=== PATIENT | female | born 1965 | race Caucasian/White ===

== ENCOUNTER 2020-08-17 15:37 | Outpatient (RCR) | payer BC, SELFPAY ==
[2017-05-20 07:20] VITALS: BMI 22.3
[2020-08-17] MEDS: COVID-19 VACC, MRNA(PFIZER)/PF 30 MCG/0.3 ML SYRINGE IM (13:17)
[2020-09-07] MEDS: COVID-19 VACC, MRNA(PFIZER)/PF 30 MCG/0.3 ML SYRINGE IM (12:46)
== END 2020-08-17 23:59 ==
LOC: IMMUN 15:37
PROVIDERS: PCP Family Medicine; Visit Provider Family Medicine
DX: Z23 Encounter for immunization (principal)
CPT/HCPCS: 0001A; 0002A; 91300

== ENCOUNTER → 2021-03-29 08:12 | Outpatient (CLI) | payer BC, SELFPAY ==
--- NOTE | 2021-03-29 15:40 | LES_PTH ---
PATIENT: NAREN YI LOC: [facility] U#:[id number] AGE/SX: 59/F ROOM: RE03/29/[address]: Dr. Andrew Morales MD : 1965 BED: DIS: SPEC #: [id number] RECD: 03/29/21 17:43 STATUS: HELEN RUBA #: [id number] CORNELL: 03/29/21 15:[address]: Andrew Morales DEPT: SURGICAL PATHOLOGY RECD BY: Aure Wilks Tissues: Skin of arm Procedures: Surgery Specimen Level IV HEADER OPERATION: Right forearm shave biopsy PRE-OP DIAGNOSIS: ?SCC TISSUE SUBMITTED: Right forearm MICROSCOPIC DIAGNOSIS Right forearm lesion, shave biopsy: Basal cell carcinoma, multifocal. Solar elastosis. See comment. ADELAIDE:abigail 04/02/2021 COMMENT The tumor is focally present at the deep margin of the specimen. Case has been reviewed in consultation with Dr. Queen who concurs with the above diagnosis. IDC:AM MICROSCOPIC DESCRIPTION Slides are reviewed. GROSS DESCRIPTION Received in fixative is one container labeled with the patient's name and designated right forearm. The specimen consists of a shave biopsy of randolph-white to light brown skin measuring 1 x 1 x 0.1 cm. The specimen is inked, serially sectioned and submitted entirely in one cassette. / SJ:rg 03/30/21 TC:0 CPT: 74417
== END ==
PROVIDERS: PCP Family Medicine; Referring Provider Family Medicine; Visit Provider Family Medicine
DX: C44.612 Basal cell carcinoma of skin of right upper limb, including shoulder (principal); L57.8 Other skin changes due to chronic exposure to nonionizing radiation; W89.9XXA Exposure to unspecified man-made visible and ultraviolet light, initial encounter; Y92.9 Unspecified place or not applicable; Y99.9 Unspecified external cause status
CPT/HCPCS: 88305

== ENCOUNTER → 2021-04-19 07:26 | Outpatient (CLI) | payer BC, SELFPAY ==
[2021-04-19 10:24] LABS: Vitamin D,25 Hydroxy 47.2 ng/mL
[2021-04-19 10:33] LABS: Anion Gap 5 (5-15); BUN 15 mg/dL (7-18); BUN/Creat Ratio 15.3 RATIO (10-20); Calcium,Total 9.7 mg/dL (8.5-10.1); Chloride 107 mmol/L (98-107); Cholesterol 286 mg/dL (200); Creatinine, Serum 0.98 mg/dL (0.55-1.02); EST Glomerular Filtration Rate 63 mL/min (>60); Est Glom Filt Rate - Afr Amer 76 mL/min (>60); Glucose 88 mg/dL (74-106); High Density Lipoprotein 68 mg/dL; Potassium 3.9 mmol/L (3.5-5.1); Sodium Level 140 mmol/L (136-145); Thyroid Stim Hormone (TSH) 1.89 uIU/mL (0.358-3.74); Triglycerides 108 mg/dL; Very Low Density Lipoprotein 22 mg/dL (5-40)
[2021-04-21 16:08] LABS: CHOLESTEROL TOTAL 279 mg/dL (100-199); HDL-C 66 mg/dL (>39); SMALL LDL-P 405 nmol/L (<=527); TRIGLYCERIDES 104 mg/dL (0-149)
[2021-04-21 16:45] LABS: INSULIN RESISTANCE SCORE <25 (<=45); LDL SIZE 21.8 nm (>20.5); LDL-C (NIH CALC) 195 mg/dL (0-99); LDL-P 2001 nmol/L (<1000)
== END ==
PROVIDERS: PCP Family Medicine; Referring Provider Family Medicine; Visit Provider Family Medicine
DX: Z13.21 Encounter for screening for nutritional disorder (principal); Z13.220 Encounter for screening for lipoid disorders; Z13.29 Encounter for screening for other suspected endocrine disorder; E78.5 Hyperlipidemia, unspecified; Z13.1 Encounter for screening for diabetes mellitus
CPT/HCPCS: 36415; 80048; 80061; 82306; 83704; 84443

== ENCOUNTER 2021-04-20 09:22 | Day surgery (SDC) | payer BC, SELFPAY ==
[2021-04-20] VITALS (7 sets, daily range): BP systolic 107–132; BP diastolic 61–76; PULSE 51–64; RESP 16; TEMP 36.1–36.2; O2SAT 100; BMI 22.6
[2021-04-20] MEDS: Lactated Ringers 1,000 ML 15 ML IV (09:55)
--- NOTE | 2021-04-20 10:35 | PCM.HP.BLA ---
History and Physical Date of Admission: 04/20/21 HISTORY OF PRESENT ILLNESS 55 year old woman presents with a lesion dorsal aspect mid right forearm that had been increasing size with irregular borders. The lesion was shave biopsied on 03/29/[address] Morales. Pathology showed a basal cell carcinoma, multifocal, and positive deep margins. She denies fever. She denies trauma. She denies bleeding. She has a family history of skin cancer. She presents today for further evaluation and treatment. PAST MEDICAL HISTORY Basal cell carcinoma of right forearm High cholesterol PAST SURGICAL HISTORY History of colonoscopy ALLERGIES No Known Allergies MEDICATIONS NK FAMILY HISTORY Other - Alcoholism, Arthritis, Diabetes, Family history of skin cancer, High cholesterol SOCIAL HISTORY Smoking Status: Never smoker alcohol intake: current substance use type: does not use REVIEW OF SYSTEMS General - Denies fever, fatigue, and weight loss. Eyes - Denies cataracts and glaucoma. ENT - Denies nasal congestion and sore throat. Endocrine - Denies excessive thirst and urination. Skin - Denies skin cancer. Has family history of skin cancer. Has a lesion right forearm that was shave biopsied on 03/29/21 and pathology showed a basal cell carcinoma, multifocal, and positive deep margins. Musculoskeletal - Denies joint pain, joint stiffness, weakness of muscles and joints, back pain, and arthritis. Neuro - Denies headaches. Cardiovascular - Denies chest pain, fatigue, and shortness of breath with exertion. Psych - Denies anxiety and depression. Respiratory - Denies chronic cough and shortness of breath. Gastrointestinal - Denies nausea, vomiting, diarrhea, and constipation. Hematologic - Denies abnormal bruising and bleeding. Genitourinary - Denies hematuria and urinary frequency. PHYSICAL EXAMINATION General - Alert and Oriented. HEENT - PERRL. EOMI. Throat is clear. No suspicious lesions noted. Neck - Supple and nontender. No cervical adenopathy. No suspicious lesions noted. Lungs - Clear to auscultation. Heart - Regular rate and rhythm. Abdomen - Soft and nondistended. Extremities - FROM. No axillary adenopathy. Radial pulses are palpable. On the dorsal aspect mid right forearm is a lesion that was shave biopsied on 03/29/21 and it showed a basal cell carcinoma, multifocal, with a positive deep margin. Measures 1.4 cm. Has irregular borders. Healing well. No evidence of infection. No other suspicious lesions noted. Neuro - CN II-XII grossly intact. Psych - Normal mood and affect. ASSESSMENT 1. 1.4 cm basal cell carcinoma, multifocal, dorsal aspect mid right forearm. 2. Family history of skin cancer. PLAN Pathology reviewed from 03/29/21. It showed a basal cell carcinoma, multifocal, with positive deep margin. Discussed basal cell carcinoma with the patient and its treatment options. Recommend operative intervention with excision of the basal cell carcinoma with a margin in all directions and send it to Pathology for analysis to rule out carcinoma at the margins. Reconstruction will be with a local skin flap. Surgery will be done under local anesthesia and IV sedation on an outpatient basis. Patient was informed of the risks and complications of the procedure including alternatives to surgery. These were discussed with the patient personally. Patient voices understanding and wishes to proceed. Some of the risks and complications were included in a form from the [employer]. We discussed the current risks associated with COVID-19. While it is understood that there is a community spread of COVID-19, the risk of scooby COVID-19 while at [facility] ([facility]) is very low; however, the risk cannot be completely mitigated because of the community spread of the disease. We discussed in detail the risk of exposure to and/or potential harm posed by the COVID-19 virus with having a surgery/procedure at this time versus the risk of delaying the surgery/procedure. It is not possible to know either the risk of delaying the surgery or procedure or chance of getting an infection with perfect accuracy, but a joint decision was made to proceed at this time with the scheduled surgery/procedure as indicated on the consent form. Patient was notified that we will need to comply with any screening or testing [facility] wishes to perform or that surgery may be delayed for any positive results. Procedure Criteria Procedure Type: Elective COVID Risk Discussion: The surgeon/proceduralist and patient have discussed in detail the risk of exposure to and/or potential harm posed by the COVID-19 virus with having a surgery/procedure at this time versus the risk of delaying the surgery/procedure. It is not possible to know either the risk of delaying the surgery or procedure or chance of getting an infection with perfect accuracy, but a joint decision was made between the patient and the surgeon/proceduralist to proceed at this time with the scheduled surgery/procedure as indicated on the consent form.
--- NOTE | 2021-04-20 11:00 | LES_PTH ---
PATIENT: NAREN YI [place] [facility] [place][id number] AGE/SX: 55/F ROOM: RE04/20/[address]: Dr. Haja Arteaga MD : 1965 BED: DIS: 04/20/2021 SPEC #: [id number] RECD: 04/20/21 13:32 STATUS: HELEN RUBA #: [id number] CORNELL: 04/20/21 11:[address]: Haja Arteaga DEPT: SURGICAL PATHOLOGY RECD BY: Aure Wilks ENTERED: 04/20/21 14:24 SP TYPE: Lesion OTHR DR: Dr. Andrew Morales MD Tissues: Skin of forearm, NOS Procedures: Surgery Specimen Level IV HEADER OPERATION: Excision basal cell carcinoma, dorsal forearm with skin flap PRE-OP DIAGNOSIS: Basal cell carcinoma right dorsal forearm TISSUE SUBMITTED: Basal cell carcinoma right dorsal forearm, suture at 12 o?clock MICROSCOPIC DIAGNOSIS Right dorsal forearm region, excisional biopsy: Negative for residual carcinoma. Focal granulation tissue reaction, fibrosis and acute inflammation consistent with previous biopsy site. Mild actinic keratosis and extensive solar elastosis. ADELAIDE:abigail 04/23/2021 COMMENT Please make reference to previous specimen ([id number]) right forearm lesion, shave biopsy with diagnosis of ?basal cell carcinoma, multifocal and solar elastosis.? This case has been reviewed in consultation with Dr. Queen who concurs with the above diagnosis. MICROSCOPIC DESCRIPTION Slides are reviewed. GROSS DESCRIPTION Received in fixative is one container labeled with the patient's name and designated basal cell carcinoma right dorsal forearm. The specimen consists of an excised fragment of oriented randolph skin measuring 3 x 2 x 0.5 cm. The specimen is inked as follows: 3 o?clock ? red and 9 o?clock ? green. The specimen is serially sectioned and totally submitted in two cassettes. / AM:abigail 04/20/21 TC:5 CPT: 42849
[2021-04-20] MEDS: Cefazolin 2 GM in 0.9% Normal Saline 100 ML IV (11:04)
[2021-04-20] MEDS: Lidocaine 1% /Epi 1:100 (20ml) 20 ML Vial (11:23)
[2021-04-20] MEDS: Mupirocin Ointment 22gm Tube 1 APPLIC (11:42)
--- NOTE | 2021-04-20 12:49 | OP.PCM_ITS ---
Problems Associated Problem List Diagnoses (1) Basal cell carcinoma of right forearm: (2) Family history of skin cancer: Report of Operation Date of Procedure: 04/20/21 Pre-Operative Diagnosis: 1. 1.4 cm basal cell carcinoma, multifocal, dorsal aspect mid right forearm. 2. Family history of skin cancer. Post-Operative Diagnosis: Same. Surgery/Procedure Performed:: Excision 1.4 cm basal cell carcinoma, multifocal, dorsal aspect mid right forearm with rhomboid transposition skin flap reconstruction (11.52 cm2). Description of Surgical Findings:: 55 year old woman presents with a lesion dorsal aspect mid right forearm that had been increasing size with irregular borders. The lesion was shave biopsied on 03/29/[address] Morales. Pathology showed a basal cell carcinoma, multifocal, and positive deep margins. She denies fever. She denies trauma. She denies bleeding. She has a family history of skin cancer. Patient was informed of the risks and complications of the procedure including alternatives to surgery. These were discussed with the patient personally. Patient voices understanding and wishes to proceed. Some of the risks and complications were included in a form from the [employer]. Surgeon: Haja Arteaga curb setter helper: None Type of Anesthesia: Local MAC (xylocaine with epinephrine and IV sedation.) Specimen's removed: Basal cell carcinoma, multifocal, dorsal aspect mid right forearm to Pathology. Drains: None. Estimated Blood Loss (mL): 10. Description of Procedure: Patient was taken to OR in supine position and was given IV sedation. The right upper extremity was prepped and draped in the usual fashion. SCD's were placed for DVT prophylaxis. Perioperative antibiotics were given intravenously. The lesion dorsal aspect mid right forearm was infiltrated with xylocaine and epinephrine. After waiting 5 minutes for the anesthetic to take effect, the lesion was excised in a rhomboid fashion with a 5 mm margin in all directions thus making this a 2.4 cm excision. A suture was marked at 12 oclock position for pathology orientation. The lesion was sent to Pathology for analysis to rule out carcinoma at the margins. A rhomboid flap was designed adjacent to the defect. Incisions were made and the rhomboid flap was elevated on a subcutaneous pedicle and easily transposed into the defect with minimal tension and minimal distortion. Hemostasis was obtained with electrocautery. Once the flap was transposed into the defect, the wounds were closed in a layered fashion with 4-0 Monocryl interrupted sutures for the deep dermis and subcutaneous tissue. The skin was approximated with 4-0 Prolene simple interrupted sutures. Antibiotic ointment was applied to the suture lines followed by gauze dressing and a compression sam wrap. The size of the defect and the size of the flap needed to close the defect was 11.52 cm2. Patient tolerated the procedure well and was sent to PACU in satisfactory condition. Patient will be sent home on antibiotics and pain medication. She will keep her right arm elevated during the initial postoperative period. Patient will followup in a week for a wound check and for discussion of the pathology report. The sutures will be removed in two weeks. Grafts/Implants Used: None. Complications None. Admit VTE Documentation VTE Present on Admission: No VTE Mechan Device Prophylaxis: SCD's VTE Pharm Prophylaxis ordered?: No Addendum Addendum: Surgery Charges CPT - 83824 ICD-10 - C44.612, Z80.8
--- NOTE | 2021-04-20 12:53 | PCM.DC ---
Discharge Instructions Diet Discharge Diet: No restrictions Activity Discharge Activity: May Not Drive (while taking narcotics medication.), May Shower (tomorrow and place plastic bag over sam wrap when showering. On the second day (Friday) patient may get incision wet in the shower.) and - (elevate right arm when sitting. No heavy lifting right arm.) May resume sexual activity in: No Restrictions Weight Bearing Status: Weight bearing as tolerated Lifting Restrictions: 20 lbs. Dressing / Incision Call your doctor if your incision/area has: Continuous Slow Oozing, Sudden Increased Bleeding, Increased Pain/ Swelling, Increased Redness, Foul Smelling Discharge and Swelling at the incision site Call your doctor if you observe: Fever of 101 or Higher, Coldness, Increased Pain, Shortness of breath, Chest pain, Calf discomfort and Uncontrolled pain Suture Line Care: - (after operative dressing removed in two days, apply antibiotic ointment to suture line daily followed by compression sam wrap.) Change Dressing in: 2 days (may remove the operative dressing to shower and then apply antibiotic ointment to suture line followed by gauze and compression sam wrap.) Cleanse incision/area with: - (may get incision wet in the shower in two days.) Follow Up Care Please Follow Up With: Haja Arteaga MD When: friday04/25/21 at 10am. Test Results: Test results from this visit will be discussed in further detail at your follow-up appointment, if applicable. Discharge Plan Admission Primary Reason for Your Visit: excision basal cell carcinoma right forearm. Attending Provider: Haja Arteaga Primary Care Provider: Willem Morales Discharge Orders/Prescriptions Prescriptions: New cefadroxil 500 mg capsule 500 mg PO BID Qty: 10 RF: 0 oxycodone-acetaminophen [Percocet] 5-325 mg tablet 1 tab PO Q6H PRN (Reason: pain (scale score 7-10)) 5 Days Qty: 20 RF: 0 Lactobacillus acidophilus 100 mg (1 billion cell) capsule 100 mg PO DAILY Qty: 10 RF: 0 Continued biotin 5 mg Capsule 5 mg PO DAILY RF: 0 multivitamin Capsule 1 cap PO DAILY RF: 0 Referrals / Follow Up: Willem Morales MD [Primary Care Provider] - Disposition Disposition (needs filled in before D/C Order can be placed): Home, Self Care
== END 2021-04-20 13:54 | disposition home or self-care (01) ==
LOC: SDC 09:25 → AC 09:25
PROVIDERS: PCP Family Medicine; Referring Provider Surgery; Visit Provider Surgery
PROC: (CPT 14021; principal; 2021-04-20 10:50)
DX: C44.612 Basal cell carcinoma of skin of right upper limb, including shoulder (principal); Z80.8 Family history of malignant neoplasm of other organs or systems; E78.00 Pure hypercholesterolemia, unspecified; Z63.72 Alcoholism and drug addiction in family; Z82.61 Family history of arthritis; Z83.3 Family history of diabetes mellitus; Z85.828 Personal history of other malignant neoplasm of skin; Z83.49 Family history of other endocrine, nutritional and metabolic diseases; L57.0 Actinic keratosis
CPT/HCPCS: 14021; 88305; J7120

== ENCOUNTER 2021-06-15 10:22 | Outpatient (CLI) | payer BC, SELFPAY ==
--- NOTE | 2021-06-15 10:45 | BRBX_PTH ---
PATIENT: NAREN YI LOC: [facility] U#:[id number] AGE/SX: 55/F ROOM: RE06/15/[address]: Dr. Alfred Dobson MD : 1965 BED: DIS: 06/15/2021 SPEC #: [id number] RECD: 06/15/21 11:18 STATUS: HELEN RUBA #: [id number] CORNELL: 06/15/21 10:[address]: Alfred Dobson DEPT: SURGICAL PATHOLOGY RECD BY: Aure Wilks ENTERED: 06/15/21 12:35 SP TYPE: BREAST BX OTHR DR: Dr. Andrew Morales MD Tissues: Left breast, NOS Procedures: Surgery Specimen Level IV HEADER OPERATION: Left stereotactic breast biopsy PRE-OP DIAGNOSIS: Left breast upper outer quadrant microcalcifications TISSUE SUBMITTED: Left breast core tissue ISCHEMIC TIME: 1 minute FIXATION TIME: 32.5 hours MICROSCOPIC DIAGNOSIS Left breast upper outer quadrant microcalcifications, stereotactic core biopsy: Hyalinized fibroadenoma with focal calcifications. Focal fibrocystic changes and intraductal hyperplasia without atypia. Negative for malignancy. See comment. ADELAIDE:abigail 06/18/2021 COMMENT Correlation with clinical, radiologic findings and appropriate follow up are necessary. MICROSCOPIC DESCRIPTION Slides are reviewed. GROSS DESCRIPTION Received in fixative is one container labeled with the patient's name and designated left breast. The specimen consists of multiple elongated fragments of randolph-yellow fibroadipose tissue that in aggregate measure 5 x 3 x 0.6 cm. The entire specimen is submitted in four cassettes. / ADELAIDE:abigail 06/15/2021 TC:1 CPT: 14769
--- NOTE | 2021-06-15 11:41 | HP.PCM_ITS ---
History and Physical Date of Admission: 06/15/21 HISTORY AND PHYSICAL - BREAST COMPLAINT ? Erica Hidalgo 1965 ? ? REFERRING PHYSICIAN: Yareli Smyth MD ? CHIEF COMPLAINT: Mammographic microcalcification found on diagnostic imaging of breast (primary encounter diagnosis) ? HPI: The patient is a 55 year old female with a complaint of an abnormal mammogram. The patient had a mammogram without ultrasound on 06/05/21 which demonstrated birads 4 left calcs: ? ? The patient denies a history of breast masses. She does perform a self breast exam routinely. She notes no skin changes. She denies nipple discharge. She notes no axillary masses. She notes no family history of breast problems. She notes no significant breast trauma or breast difficulties in the past. ? The patient is being seen by me today at the request of Dr. Smyth for my opinion and advice regarding Mammographic microcalcification found on diagnostic imaging of breast (primary encounter diagnosis). ? PAST MEDICAL HISTORY PAST MEDICAL HISTORY Diagnosis Date ? Other and unspecified hyperlipidemia ? ? ? PAST SURGICAL HISTORY PAST SURGICAL HISTORY Procedure Laterality Date ? PAST SURGICAL HISTORY OF ? ? ? uterus ablasion ? PAST SURGICAL HISTORY OF ? ? ? right forearm carcinoma removal ? TUBAL LIGATION, ? 06/02/1992 ? ? ? CURRENT MEDICATIONS Current Outpatient Medications Medication Sig Dispense Refill ? BIOTIN ORAL Take by mouth once daily. 5000 IU ? MULTIVITAMIN ORAL Take by mouth once daily. ? Biotin-Silicon Zwqe-K-Npsqwtmn 5,000 mcg-100 mg- 50 mg tab Take 1 capsule by mouth once daily. (Patient not taking: Reported on 06/08/2021 ) ? ? ? No current facility-administered medications for this visit. ? ? ALLERGIES: Patient has no known allergies. ? PERSONAL HISTORY: SOCIAL HISTORY Social History ? Tobacco Use ? Smoking status: Never Smoker ? Smokeless tobacco: Never Used Vaping Use ? Vaping Use: Never used Substance Use Topics ? Alcohol use: Yes ? ? Comment: occasionally ? Drug use: No ? FAMILY HISTORY: FAMILY HISTORY FAMILY HISTORY Problem Relation Age of Onset ? Diabetes Father ? ? insulin ? Hypertension Father ? ? ? REVIEW OF SYMPTOMS: The review of systems data was entered by the nurse and reviewed by me ? Nursing Notes: Evon Shea LPN 06/08/2021 8:27 AM Signed REVIEW OF SYSTEMS: General: The patient denies fatigue, denies weight loss, denies weight gain, denies feeling hot, and denies feelings of cold. Eyes: The patient denies glaucoma, notes eye injury/surgery, does not wear glasses or contacts. Ear/Nose/Throat: The patient denies allergies, denies hayfever, denies ear infections, and denies bloody noses. Cardiovascular: The patient denies chest pain, denies heart disease, denies high blood pressure,denies cardiac stent, denies prior heart attack, denies irregular heart beat, notes high cholesterol, denies poor circulation, denies heart failure, other cardiac issues, denies claudication, denies cold feet, denies peripheral arterial stent. Respiratory: The patient denies tuberculosis, denies pneumonia, denies frequent cough, denies pulmonary embolism, denies shortness of breath, and denies coughing up blood. Gastrointestinal: The patient denies difficulty swallowing, denies acid reflux, denies ulcers, denies vomiting, denies jaundice/hepatitis, denies gallbladder problems, denies black or tarry stools, denies hemorrhoids, denies bleeding from rectum, denies diverticulitis, denies constipation, denies diarrhea, denies loss of stool control, and denies hernias. Kidney/Bladder: The patient denies kidney stones, denies urine infections, and denies bloody urine. Skin: The patient notes a history of skin cancer, denies bleeding/changing moles, and denies a history of skin rash. Neurologic: The patient denies a history of epilepsy/convulsions, denies headaches, denies head/spinal injuries, and denies stroke/TIA. Psychiatric: The patient denies psychiatric medications, denies depression, and denies voices, denies substance abuse. Endocrine: The patient denies thyroid disorders, denies diabetes, and denies hormonal problems. Hematologic: The patient denies a history of bruising, denies bleeding, and denies anemia, denies blood clots. Infections: The patient denies a history of measles and mumps, denies rheumatic fever, and denies sexually transmitted diseases. Musculoskeletal: The patient denies back pain/injury, denies back problems, denies sciatica, denies knee/foot trouble, denies arthritis, or denies gout. ? ? When was patient's last Mammogram screening? 04/2021 ? Last Colonoscopy: 2017 ? Evon Shea LPN ? PHYSICAL EXAMINATION: ? General: The patient is 55 year old female, well nourished, well hydrated in no acute distress. The patient is oriented to time, place, and person. ? VITALS: Blood pressure 118/74, pulse 80, temperature 36.6 ?C (97.8 ?F), height 157.5 cm (5' 2), weight 62.3 kg (137 lb 6.4 oz), last menstrual period 09/08/2014, SpO2 100 %. Body mass index is 25.13 kg/m?. ? HEENT: Normal cephalic, ataumatic, pupils are equally round, sclera are anicteric, mucous membranes are moist, oropharynx is clear. Neck has no masses, asymmetry or lymphadenopathy. Thyroid is unremarkable. ? Respiratory: Clear to auscultation and percussion. Normal respiratory excursion and pattern. ? Cardiac: Examination is regular rate and rhythm. ? Abdominal exam: Soft, nontender, with no palpable masses. No hepatosplenomegaly. No palpable hernias. ? Rectal exam: exam deferred Extremities: no clubbing, cyanosis or edema. No adenopathy. ? Breast: Visual inspection reveals no retractions, nipple inversion, or skin changes. Palpation of the right breast reveals no dominant or suspicious masses, but multiple benign-feeling nodules. Palpation of the left breast reveals no dominant or suspicious masses, but multiple benign-feeling nodules. Axillary exam demonstrates no suspicious masses in either the left or right axilla. There is no nipple discharge expressed from either the left or right breast. ? LABORATORY VALUES: As Noted ? RADIOLOGIC STUDIES: As Noted ? Assessment IMPRESSION: Mammographic microcalcification found on diagnostic imaging of breast (primary encounter diagnosis) ? PLAN: I plan to perform a stereotactic biopsy of the left breast. The planned surgical procedure was discussed extensively with the patient. The risks, benefits, anticipated outcomes and possible complications were mentioned. My staff has also explained the procedure in understandable terms and the patient was given the option to take printed material concerning the planned procedure. The patient had the opportunity to ask questions concerning the planned procedure. The patient freely consents to the planned procedure. ? ? Diagnoses: (R92.0) Mammographic microcalcification found on diagnostic imaging of breast (primary encounter diagnosis) ? My findings have been communicated to Dr. Smyth via shared medical record. This note will be forwarded to Dr. Berry primary care provider on file.. ? Return to Clinic: The patient is instructed to follow-up with me 1 week post operatively. ? COVID (Procedure Consent) Procedure Criteria ? Procedure Criteria: Yes Elective The surgeon/proceduralist and patient have discussed in detail the risk of exposure to and/or potential harm posed by the COVID-19 virus with having a surgery/procedure at this time versus the risk of? delaying the surgery/procedure. It is not possible to know either the risk of delaying the surgery or procedure or chance of getting an infection with perfect accuracy, but a joint decision was made between the patient and the surgeon/proc eduralist ?to proceed at this time with the scheduled surgery/procedure as indicated on the consent form. ? ? Alfred Dobson III, MD . I have re-examined the patient. There are no clinical changes since date of exam.
--- NOTE | 2021-06-15 11:41 | PCM.OPRPT ---
Problems Associated Problem List Diagnoses (1) Microcalcification of left breast on mammogram: Report of Operation Date of Procedure: 06/15/21 Pre-Operative Diagnosis: Microcalcifications of left breast Post-Operative Diagnosis: Same Surgery/Procedure Performed:: Left stereotactic breast biopsy Surgeon: Alfred Dobson nursing assistants teacher: None Type of Anesthesia: Local Description of Procedure: Patient was brought into the mammography unit placed in the supine position. Lateral to medial views obtained of the left breast. Microcalcifications were identified. ?15 degree views were obtained. I targeted on the microcalcifications. I prepped the breast. I injected local. I made a skin ekaterina. Placed the needle in the prefire position. Microcalcifications were adequately targeted. Fired the needle and took 360 degree circumferential biopsies. X-ray my specimen. Microcalcifications were present. That the needle of 7 mm. Placed a small Gelfoam titanium clip in the biopsy cavity. Steri-Strips were applied sterile dressings were applied standard mammograms were obtained and the patient tolerated the procedure well. Admit VTE Documentation VTE Present on Admission: No VTE Mechan Device Prophylaxis: None VTE Pharm Prophylaxis ordered?: No Reason prophylaxis not ordered:: Treatment Not Indicated
== END 2021-06-15 23:59 | disposition short-term general hospital (02) ==
LOC: BIRAD 10:23
PROVIDERS: PCP Family Medicine; Referring Provider Surgery; Visit Provider Surgery
DX: D24.2 Benign neoplasm of left breast (principal); N60.12 Diffuse cystic mastopathy of left breast
CPT/HCPCS: 19081; 88305; J7050; A4648

== ENCOUNTER → 2023-05-08 | Outpatient (CLI) | payer BC, SELFPAY ==
[2023-05-08 10:21] LABS: Absolute Lymphocyte Count 1.21 X10^3/uL (0.83-4.51); Basophil# 0.02 X10^3/uL; Basophil% 0.3 % (0-1); Eosinophil# 0.02 X10^3/uL; Eosinophils% 0.3 % (0-5); Hemoglobin 13.8 g/dL (12.0-15.0); Lymphocyte # 1.21 X10^3/ul (0.83-4.51); Lymphocyte % 15.7 % (19-41); Mean Corp Hgb Conc 31.4 g/dL (32-36); Mean Corpuscular Hgb 27.8 pg (27.0-32.0); Mean Corpuscular Volume 88.5 fL (81-99); Mean Platelet Vol. 11.5 fl (6.2-12.0); Monocyte# 0.41 X10^3/uL; Monocyte% 5.3 % (0-10); NRBC Flagged by Analyzer 0 % (0-5); Neutrophil # 6.01 X10^3/uL (2.7-7.7); Neutrophil % 78.1 % (47-70); Platelet Count 222 K/mm3 (150-450); RBC Distribution Width CV 13.4 % (11.6-14.6); RBC Distribution Width SD 43.3 fl (35.1-43.9); Red Blood Count 4.97 M/mm3 (4.2-5.4); White Blood Count 7.7 K/mm3 (4.4-11.0)
[2023-05-08 10:50] LABS: Anion Gap 5 (5-15); BUN 15 mg/dL (7-18); BUN/Creat Ratio 14.2 RATIO (10-20); Chloride 110 mmol/L (98-107); Cholesterol 263 mg/dL (200); Creatinine, Serum 1.06 mg/dL (0.55-1.02); EST Glomerular Filtration Rate 57 mL/min (>60); Est Glom Filt Rate - Afr Amer 69 mL/min (>60); Glucose 91 mg/dL (74-106); High Density Lipoprotein 68 mg/dL; Potassium 3.7 mmol/L (3.5-5.1); Sodium Level 141 mmol/L (136-145); Thyroid Stim Hormone (TSH) 1.45 uIU/mL (0.358-3.74); Triglycerides 87 mg/dL; Very Low Density Lipoprotein 17 mg/dL (5-40)
== END | disposition home or self-care (01) ==
LOC: MFPLAB 08:37
PROVIDERS: PCP Family Medicine; Visit Provider Family Medicine
DX: E78.00 Pure hypercholesterolemia, unspecified (principal); T14.8XXA Other injury of unspecified body region, initial encounter
CPT/HCPCS: 36415; 80048; 80061; 84443; 85025

== ENCOUNTER → 2024-05-31 | Outpatient (CLI) | payer BC, SELFPAY ==
[2024-05-31 10:32] LABS: Anion Gap 1 (5-15); BUN 16 mg/dL (7-18); BUN/Creat Ratio 16.9 RATIO (10-20); Calcium,Total 9.5 mg/dL (8.5-10.1); Chloride 107 mmol/L (98-107); Cholesterol 328 mg/dL (200); Creatinine, Serum 0.95 mg/dL (0.55-1.02); EST Glomerular Filtration Rate 64 mL/min (>60); Est Glom Filt Rate - Afr Amer 78 mL/min (>60); Glucose 97 mg/dL (74-106); High Density Lipoprotein 81 mg/dL; Sodium Level 139 mmol/L (136-145); Triglycerides 85 mg/dL; Very Low Density Lipoprotein 17 mg/dL (5-40)
== END | disposition home or self-care (01) ==
LOC: MFPLAB 08:16
PROVIDERS: PCP Family Medicine; Referring Provider Family Medicine; Visit Provider Family Medicine
DX: N28.9 Disorder of kidney and ureter, unspecified (principal); E78.00 Pure hypercholesterolemia, unspecified
CPT/HCPCS: 36415; 80048; 80061

== ENCOUNTER → 2025-05-20 | Outpatient (CLI) | payer BC, SELFPAY ==
--- OUTSIDE RECORDS SUMMARY | 2025-05-20 08:26 | XMS RPT_ITS | CCD ---
Author Organization [facility] Care Team Providers Care Education Program Specialist Name Role Phone Unavailable Primary Care Provider UnavailKei Ayers Referring Unavailable Kei Morales Attending Unavailable Kei Morales Primary Care Unavailable Unavailable Primary Care Provider UnavailDOUG Nicholson Referring Unavailable DOUG ASKEW Attending Unavailable DOUG ASKEW Referring Unavailable Kei Morales MD Primary Care Provide r KEI MORALES Referring Unavail able KEI MORALES Primary Care Unavail able Allergies Allergy Classification Reported Allergen(s) Allergy Type Date of Onset Reaction(s) Facility (1 source) ALLERGIES NOT ON FILE; Translations: [ALLERGIES NOT ON FILE] Propensity to adverse reactions (disorder) [facility] Medications Current Medications Medication Drug Class(es) Dates Sig (Normalized) Sig (Original) atorvastatin 20 mg oral tablet (2 sources) HMG-CoA Reductase Inhibitor Start: 06-08-2024 take 1 tablet by mouth once daily LIPITOR 20 mg tablet Take 20 mg by mouth once daily. 06/08/2024 Active biotin 5 mg oral capsule (10 sources) Start: 04-18-2021 take 5 mg by mouth once daily Biotin Active 5 MG PO DAILY April 18, 2021 12:00am take 5000 [IU] by mouth once apolinar ly BIOTIN ORAL Take by mouth once daily. 5000 IU Active take 5000 [IU] by mouth once apolinar ly BIOTIN ORAL Take by mouth once daily. 5000 IU 0 Active Comment on above: Take by mouth once d aily. 5000 IU Biotin-Silicon Hjjm-K-Wgitqoub 5,000 mcg-100 mg- 50 mg tab (9 sources) take 1 capsule by mouth once daily Biotin-Silicon Zjqi-X-Eqwadjdx 5,000 mcg-100 mg- 50 mg tab Take 1 capsule by mouth once daily. Active take 1 capsule by mouth once apolinar ly Biotin-Silicon Numv-H-Bzfqqvcq 5,000 mcg-100 mg- 50 mg tab Take 1 capsule by mouth once daily. 0 Active Comment on above: Take 1 capsule by mo uth once daily. MULTIVITAMIN ORAL (9 sources) MULTIVITAMIN ORA L Take by mouth once daily. Active MULTIVITAMIN ORA L Take by mouth once daily. 0 Active Comment on above: Take by mouth once d aily. Multivitamin preparation (1 source) Start: 04-18-2021 take 1 capsule by mouth once daily Multivitamin Active 1 CAP PO DAILY April 18, 2021 12:00am Completed/Discontinued Medications Medication Drug Class(es) Dates Sig (Normalized) Sig (Original) acetaminophen 325 mg / oxyCODONE hydrochloride 5 mg oral tablet (1 source) Opioid Agonist Start: 04-20-2021 End: 05-17-2021 take 1 tablet by mouth every six hours Oxycodone-Acetamin ophen (Percocet) 5-325 mg tablet Discontinued 1 TABLET PO EVERY 6 HOURS 20 5 April 20, 2021 May 17, 2021 9:38am 20 tabs (twenty) cefadroxil 500 mg oral capsule (1 source) Cephalosporin Antibacterial Start: 04-20-2021 End: 05-17-2021 take 500 mg by mouth twice daily Cefadroxil Discontinued 500 MG PO TWICE A DAY April 20, 2021 12:00am May 17, 2021 9:38am lactobacillus acidophilus [id number] unt oral capsule (1 source) Start: 04-20-2021 End: 05-17-2021 take 100 mg by mouth once daily Lactobacillus Acidophilus Discontinued 100 MG PO DAILY April 20, 2021 12:00am May 17, 2021 9:38am Problems Active Problems Problem Classification Problem Date Documented Date Episodic/Chronic Complications of surgical procedures or medical care (1 source) Delayed healing of surgical wound; Translations: [Other complications of procedures, not elsewhere classified, initial encounter] 05-17-2021 Episodic Disorders of lipid metabolism (5 sources) Hypercholesterolemia; Translations: [Pure hypercholesterolemia, unspecified] Onset: 11-01-2024 04-16-2021 Chronic Other diseases of kidney and ureters (1 source) Disorder of kidney and ureter, unspecified; Translations: [Disorder of kidney and ureter, unspecified] Onset: 06-24-2024 Episodic Other nervous system disorders (1 source) Acute postoperative pain; Translations: [Other acute postprocedural pain] 04-20-2021 Episodic Other non-epithelial cancer of skin (1 source) Basal cell carcinoma of upper extremity; Translations: [Basal cell carcinoma of skin of right upper limb, including shoulder] 04-16-2021 Episodic Other screening for suspected conditions (not mental disorders or infectious disease) (11 sources) Mammography abnormal; Translations: [Other abnormal and inconclusive findings on diagnostic imaging of breast] Onset: 09-28-2024 Episodic Residual codes; unclassified (1 source) Family history of malignant neoplasm of skin; Translations: [Family history of malignant neoplasm of other organs or systems] 04-16-2021 Episodic Unclassified (2 sources) Patient encounter status 07-29-2024 Past or Other Problems Problem Classification Problem Date Documented Date Episodic/Chronic Nonmalignant breast conditions (4 sources) Mammographic microcalcification of left breast; Translations: [Mammographic microcalcification found on diagnostic imaging of breast] Onset: 2 Resolved: 5 06-15-2021 Episodic Other female genital disorders (3 sources) Abnormal uterine bleeding; Translations: [Abnormal uterine and vaginal bleeding, unspecified] Onset: 5 Resolved: 5 11-10-2014 Chronic Results Test Name Value Interpretation Reference Range Facility CT CARDIAC SCORING WO IV CON TRASTon 11-01-2024 CT CARDIAC SCORING WO IV CONTRAST Interpreted By: Sparkle Couch, STUDY: CT CARDIAC SCORING WO IV CONTRAST; 11/01/2024 8:48 am INDICATION: Signs/Symptoms:SCREE EVANGELISTA. ,E78.5 Hyperlipidemia, unspecified COMPARISON: 05/03/2021 ACCESSION NUMBER(S): [id number] ORDERING CLINICIAN: KEI MORALES TECHNIQUE: Using prospective ECG gating, CT scan of the coronary arteries was performed without intravenous contrast. Coronary calcium scoring was performed according to the method of Agatston. FINDINGS: The score and distribution of calcium in the coronary arteries is as follows: LM 16.56 LAD 7.64 LCx 0 RCA 0 Total 24.2 The visualized mid/lower ascending thoracic aorta measures 3.3 cm in diameter. The heart is normal in size. No pericardial effusion is present. No gross evidence of mediastinal or hilar lymphadenopathy or masses is identified. The visualized segments of the lungs are normally expanded. 7 x 4 mm ground-glass nodule lateral aspect of the lingula (image 32 of 53) is not definitely identified on the prior exam. The visualized subdiaphragmatic structures appear intact. IMPRESSION: 1. Coronary artery calcium score of 24.2, increased from 1 on the prior study*. 2. 7 x 4 mm ground-glass nodule lingula is not definitely identified on the previous exam. Consider follow up non contrast chest CT at 6-12 months to confirm persistence, then consider CT chest every 2 years until 5 years.(Hossein Wilson et al., Guidelines for management of incidental pulmonary nodules detected on CT images: From the Fleischner Society 2017, Radiology. 2017 Finn;284 (1):228-243.) FLEISCHNER.ACR.IF.8 *Coronary artery calcium scoring may be helpful in predicting the risk for future coronary heart disease events. According to the [place] [employer] Clinical Expert Consensus Task Force, such testing provides important prognostic information in patients with more than one coronary heart disease risk factor. The coronary artery calcium score correlates with the annual risk of a non-fatal myocardial infarction or coronary heart disease . Coronary artery score Annual Risk 0-99 0.4% 100-399 1.3% >400 2.4% These three breakpoints correspond to lower, intermediate and high risk states for future coronary events. Such information should be used, along with appropriate clinical judgment, to make decisions regarding the intensity of risk factor management strategies to treat blood lipids and to modify other non-lipid coronary risk factors. Reference: Stafford P et al. Circulation. 2007; 115:402-426 MACRO: Critical Finding: See findings. Notification was initiated on 11/01/2024 at 3:05 pm by Sparkle Couch. (-YCF-) Instructions: Signed by: Sparkle Couch 11/01/2024 3:05 PM Dictation workstation: [id number] [facility] CT for calcium scoring WO co ntrast and CTA W contrast IV Heart and coronary arterieson 11-01-2024 1. Coronary artery calcium score of 24.2, increased from 1 on the prior study*. 2. 7 x 4 mm ground-glass nodule lingula is not definitely identified on the previous exam. Consider follow up non contrast chest CT at 6-12 months to confirm persistence, then consider CT chest every 2 years until 5 years.(Hossein Wilson et al., Guidelines for management of incidental pulmonary nodules detected on CT images: From the Fleischner Society 2017, Radiology. 2017 Finn;284 (1):228-243.) ANNETTE.ACR.IF.8 *Coronary artery calcium scoring may be helpful in predicting the risk for future coronary heart disease events. According to the [place] [employer] Clinical Expert Consensus Task Force, such testing provides important prognostic information in patients with more than one coronary heart disease risk factor. The coronary artery calcium score correlates with the annual risk of a non-fatal myocardial infarction or coronary heart disease . Coronary artery score Annual Risk 0-99 0.4% 100-399 1.3% >400 2.4% These three breakpoints correspond to lower, intermediate and high risk states for future coronary events. Such information should be used, along with appropriate clinical judgment, to make decisions regarding the intensity of risk factor management strategies to treat blood lipids and to modify other non-lipid coronary risk factors. Reference: Stafford P et al. Circulation. 2007; 115:402-426 MACRO: Critical Finding: See findings. Notification was initiated on 11/01/2024 at 3:05 pm by Sparkle Couch. (-YCF-) Instructions: Signed by: Sparkle Couch 11/01/2024 3:05 PM Dictation workstation: [id number] [facility] Interpreted By: Sparkle Couch, STUDY: CT CARDIAC SCORING WO IV CONTRAST; 11/01/2024 8:48 am INDICATION: Signs/Symptoms:SCREE EVANGELISTA. ,E78.5 Hyperlipidemia, unspecified COMPARISON: 05/03/2021 ACCESSION NUMBER(S): [id number] ORDERING CLINICIAN: KEI MORALES TECHNIQUE: Using prospective ECG gating, CT scan of the coronary arteries was performed without intravenous contrast. Coronary calcium scoring was performed according to the method of Agatston. FINDINGS: The score and distribution of calcium in the coronary arteries is as follows: LM 16.56 LAD 7.64 LCx 0 RCA 0 Total 24.2 The visualized mid/lower ascending thoracic aorta measures 3.3 cm in diameter. The heart is normal in size. No pericardial effusion is present. No gross evidence of mediastinal or hilar lymphadenopathy or masses is identified. The visualized segments of the lungs are normally expanded. 7 x 4 mm ground-glass nodule lateral aspect of the lingula (image 32 of 53) is not definitely identified on the prior exam. The visualized subdiaphragmatic structures appear intact. [facility] Sparkle Couch MD - 11/01/2024 Interpreted By: Sparkle Couch, STUDY: CT CARDIAC SCORING WO IV CONTRAST; 11/01/2024 8:48 am INDICATION: Signs/Symptoms:SCREE EVANGELISTA. ,E78.5 Hyperlipidemia, unspecified COMPARISON: 05/03/2021 ACCESSION NUMBER(S): [id number] ORDERING CLINICIAN: KEI MORALES TECHNIQUE: Using prospective ECG gating, CT scan of the coronary arteries was performed without intravenous contrast. Coronary calcium scoring was performed according to the method of Agatston. FINDINGS: The score and distribution of calcium in the coronary arteries is as follows: LM 16.56 LAD 7.64 LCx 0 RCA 0 Total 24.2 The visualized mid/lower ascending thoracic aorta measures 3.3 cm in diameter. The heart is normal in size. No pericardial effusion is present. No gross evidence of mediastinal or hilar lymphadenopathy or masses is identified. The visualized segments of the lungs are normally expanded. 7 x 4 mm ground-glass nodule lateral aspect of the lingula (image 32 of 53) is not definitely identified on the prior exam. The visualized subdiaphragmatic structures appear intact. IMPRESSION: 1. Coronary artery calcium score of 24.2, increased from 1 on the prior study*. 2. 7 x 4 mm ground-glass nodule lingula is not definitely identified on the previous exam. Consider follow up non contrast chest CT at 6-12 months to confirm persistence, then consider CT chest every 2 years until 5 years.(Hossein Petithojoe et al., Guidelines for management of incidental pulmonary nodules detected on CT images: From the Fleischner Society 2017, Radiology. 2017 Finn;284 (1):228-243.) FLEISCHNER.ACR.IF.8 *Coronary artery calcium scoring may be helpful in predicting the risk for future coronary heart disease events. According to the [place] [employer] Clinical Expert Consensus Task Force, such testing provides important prognostic information in patients with more than one coronary heart disease risk factor. The coronary artery calcium score correlates with the annual risk of a non-fatal myocardial infarction or coronary heart disease . Coronary artery score Annual Risk 0-99 0.4% 100-399 1.3% >400 2.4% These three breakpoints correspond to lower, intermediate and high risk states for future coronary events. Such information should be used, along with appropriate clinical judgment, to make decisions regarding the intensity of risk factor management strategies to treat blood lipids and to modify other non-lipid coronary risk factors. Reference: Stafford P et al. Circulation. 2007; 115:402-426 MACRO: Critical Finding: See findings. Notification was initiated on 11/01/2024 at 3:05 pm by Sparkle Couch. (-YCF-) Instructions: Signed by: Sparkle Couch 11/01/2024 3:05 PM Dictation workstation: [id number] [facility] Work Phone: Radiology Study observation (narrative) [facility] Work Phone: CT for calcium scoring WO co ntrast and CTA W contrast IV Heart and coronary arteriesOrdered By: Sparkle Couch on 11-01-2024 [facility] Work Phone: CNOVon 09-28-2024 CNOV Office Visit (OBGYWM) NAREN HIDALGO ([id number]) 1965 F Date Time Provider Department 09/28/24 1:20 PM DOUG ASKEW OBJOSÉ MIGUEL During your visit today, we recorded the following information about you: Blood pressure Weight Height 130/74 54.9 kg 1.61 m Doug Askew MD 09/28/2024 1:29 PM Signed Customer Support Coordinator offered: Patient declines. maria esther Maldonado is a 58 year old who presents for an annual gynecologic exam without complaints. Postmenopausal: Yes HRT use: No. Still get period: No LMP: 09/08/2014 Menopause symptoms: None Time with current partner: 41 years Number of lifetime partners: 3 Contraception frequency: Always Contraception: Tubal Ligation HPV vaccine: No; Last pap smear: 04/03/2021 normal, HPV negative History of abnormal pap: No, all prior PAP smears have been normal Bothersome pelvic pain: No Last mammogram: today History of abnormal mammogram: Yes OB History Gravida2 Para2 Term2 Preterm0 AB0 Living2 SAB0 IAB0 Ectopic0 Multiple0 Live Births0 FAMILY HISTORY Problem Relation Age of Onset Diabetes Father insulin Hypertension Father SOCIAL HISTORY Social History Tobacco Use Smoking status: Never Smokeless tobacco: Never Vaping Use Vaping status: Never Used Substance Use Topics Alcohol use: Yes Comment: occasionally Drug use: No REVIEW OF SYSTEMS Abdomen: No abdominal pain, nausea, vomiting, diarrhea, or constipation. No bloating, early satiety, indigestion, or increased flatulence. Bladder: No dysuria, gross hematuria, urinary frequency, urinary urgency, or incontinence Breast: No breast lumps, nipple d/c, overlying skin changes, redness or skin retraction Allergies and current medication updated:Yes SENSITIVE EXAM: The sensitive examination was discussed with the Patient or Patient's Authorized Car Inspector. As applicable, any other physician, advance practice provider, medical student, or other health professional student that will be observing or involved in the sensitive examination for educational or training purposes was discussed with the Patient or Authorized Car Inspector. The Patient or Authorized Car Inspector has agreed to proceed with the sensitive examination. (Sensitive examination includes inspection and/or palpation of the breasts, pelvis, prostate and anorectal regions). EXAM: BP 130/74 Ht 5' 3.386" (1.61m) Wt 121 lb (54.9kg) LMP 09/08/2014 BMI 21.17 kg/(m2). GENERAL: pleasant, female in no apparent distress BREAST: soft, non-tender, symmetric, no dominant mass, normal nipple-areolar complex, no lymphadenopathy, and no nipple discharge CHEST: Normal inspiratory effort ABDOMEN: soft, non-tender, and no masses PELVIC: external genitalia normal, no vulvar lesions, no cervical lesions, good vaginal support, normal appearing perineal body and perianal region BIMANUAL: uterus normal size, shape and consistency, no adnexal masses, and non-tender RECTOVAGINAL: deferred. NEURO: alert and oriented x3,exam grossly non-focal EXTREMITIES: normal ASSESSMENT/PLAN: 1) Health maintenance: Pap/HPV up to date. Mammogram today Nutrition, exercise and routine health maintenance exams reviewed. Colon cancer screening: up to date with screening - needs repeat 2026 2) Follow up one year or sooner as needed Doug Askew MD Referring Provider: DOUG ASKEW [[id number]] Allergies As of Date: 09/28/2024 (No Known Allergies) Date Reviewed: 09/28/2024 Reviewed by: Doug Askew MD - Fully Assessed Reason for Visit: Well Woman [1463] Primary Visit Diagnosis:Encounter for gynecological examination (general) (routine) without abnormal findings [Z01.419] Other Visit Diagnosis:Encounter for screening mammogram for breast cancer [Z12.31] Order(s):KACIE SCREENING W OTF [[id number]] Order #: [id number] FUTURE Prescriptions as of 09/28/2024 - LIPITOR 20 mg tablet Take 20 mg by mouth once daily. - BIOTIN ORAL Take by mouth once daily. 5000 IU - MULTIVITAMIN ORAL Take by mouth once daily. - Biotin-Silicon Bhwn-I-Ndrrnsgw 5,000 mcg-100 mg- 50 mg tab Take 1 capsule by mouth once daily. Problem List As Of Date 09/28/2024 Noted Resolved Lump or mass in breast [N63.0] 09/03/2011 08/16/2014 Abnormal uterine bleeding (AUB) [N93.9] 08/16/2014 11/10/2014 Disposition: Return in 1 year (on 09/28/2025) for Annual Exam. Follow-up and Disposition History for Encounter Date Provider Department Center 09/28/2024 [id number] ASKEW [facility] Encounter Status:Closed by DOUG ASKEW on 09/28/24 Normal [facility] KACIE SCREENING W TOMOon 09-28 KACIE SCREENING W OTF * * *Final Report* * * DATE OF EXAM: Sep 28 2024 2:26PM [facility] [id number] - KACIE SCREENING W OTF / PROCEDURE REASON: Encounter for screening mammogram for malignant neoplasm of breast * * * * Physician Interpretation * * * * RESULT: [address] [address] [place] [address] #[id number] - [facility] SCREENING W OTF HISTORY: 58 year-old patient seen for screening. Patient is asymptomatic in both breasts. Patient states no personal history of breast cancer. COMPARISON STUDIES: The present examination has been compared to prior imaging studies dated 04/19/2021 (mammogram), 06/05/2021 (mammogram), 11/06/2021 (mammogram), 05/06/2022 (mammogram) and 05/08/2023 (mammogram). MAMMOGRAM TECHNIQUE: The study was acquired using full field digital technology and interpreted from soft copy. Digital Breast Tomosynthesis (DBT) images were obtained and used to assist in the interpretation of this examination. MAMMOGRAM FINDINGS: The breasts are heterogeneously dense, which may obscure small masses. No suspicious masses, calcifications or other abnormalities are seen in either breast. There are no significant interval changes. IMPRESSION: There is no mammographic evidence of malignancy in either breast. Routine screening mammogram is recommended. Annual mammogram will be due in 1 year. BI-RADS Category 1: Negative RISK: Based on the Tyrer-Cuzick (TC) risk assessment model, this patient has a 5.9% lifetime risk of developing breast cancer, meaning they are at average risk for developing breast cancer. However, this is only an estimate based on available history provided on the patient's questionnaire. We encourage all patients to talk with their providers about these results, further recommendations for managing breast health, and appropriate supplemental screening options if the patient has dense breast tissue. Interpreting Radiologist: Denver Salguero M.D. Electronically signed on: 09/30/2024 Ms Sql Server Developer: MIKI Transcribe Date/Time: Sep 28 2024 2:17P Dictated by: DENVER SALGUERO MD This examination was interpreted and the report reviewed and electronically signed by: DENVER SALGUERO MD on Sep 30 2024 9:14AM EST [id number] CN Normal [facility] Basic Metabolic Profile (BMP )on 05-31-2024 BUN/CRE 16.9 RATIO Normal 10-20 [facility] Comment on above: Order Comment: Order Date: 05/25/24 Order Info: [id number] - BMP Order Info: [id number] - LIPID Performed By: #### L 500.4100, L500.2500 #### [facility] [address] [place], [address] CA,Total 9.5 mg/dL Normal 8.5-10.1 [facility] Comment on above: Order Comment: Order Date: 05/25/24 Order Info: 06 - BMP Order Info: [id number] - LIPID Performed By: #### L 500.4100, L500.2500 #### [facility] [address] [place], [address] Chloride [Moles/Vol] 107 mmol/L Normal 98-107 [facility] Comment on above: Order Comment: Order Date: 05/25/24 Order Info: 06 - BMP Order Info: [id number] - LIPID Performed By: #### L 500.4100, L500.2500 #### [facility] [address] [place], [address] CO2 [Moles/Vol] 30.0 mmol/L Normal 21.0-32.0 [facility] Comment on above: Order Comment: Order Date: 05/25/24 Order Info: 06 - [facility] Order Info: [id number] - LIPID Performed By: #### L 500.4100, L500.2500 #### [facility] [address] [place], [address] Creatinine [Mass/Vol] 0.95 mg/dL Normal 0.55-1.02 [facility] Comment on above: Order Comment: Order Date: 05/25/24 Order Info: 06 - BMP Order Info: [id number] - LIPID Result Comment: The validity of the calculated GFR GFRAA in patients over 70 years has not been determined. Clinical correlation is essential. Performed By: #### L 500.4100, L500.2500 #### [facility] [address] [place], [address] EST GFR - AA 78 mL/min Normal >60 [facility] Comment on above: Order Comment: Order Date: 05/25/24 Order Info: [id number] - [facility] Order Info: [id number] - LIPID Result Comment: Afri can [place] GFR Calc Performed By: #### L 500.4100, L500.2500 #### [facility] [address] [place], [address] GAP 1 Low 5-15 [facility] Comment on above: Order Comment: Order Date: 05/25/24 Order Info: [id number] - [facility] Order Info: - LIPID Performed By: #### L 500.4100, L500.2500 #### [facility] [address] [place], [address] GFR/1.73 sq M.predicted among non-blacks MDRD (S/P/Bld) [Vol rate/Area] 64 mL/min/{1.73_m2} Normal >60 [facility] Comment on above: Order Comment: Order Date: 05/25/24 Order Info: [id number] - [facility] Order Info: [id number] - LIPID Result Comment: Non- GFR Calc Performed By: #### L 500.4100, L500.2500 #### [facility] [address] [place], [address] Glucose [Mass/Vol] 97 mg/dL Normal 74-106 [facility] Comment on above: Order Comment: Order Date: 05/25/24 Order Info: [id number] - [facility] Order Info: [id number] - LIPID Performed By: #### L 500.4100, L500.2500 #### [facility] [address] [place], [address] Potassium [Moles/Vol] 4.0 mmol/L Normal 3.5-5.1 [facility] Comment on above: Order Comment: Order Date: 05/25/24 Order Info: [id number] - BMP Order Info: [id number] - LIPID Performed By: #### L 500.4100, L500.2500 #### [facility] [address] [place], [address] Sodium [Moles/Vol] 139 mmol/L Normal 136-145 [facility] Comment on above: Order Comment: Order Date: 05/25/24 Order Info: 06- - BMP Order Info: [id number] - LIPID Performed By: #### L 500.4100, L500.2500 #### [facility] [address] [place], [address] Urea nitrogen [Mass/Vol] 16 mg/dL Normal 7-18 [facility] Comment on above: Order Comment: Order Date: 05/25/24 Order Info: [id number] - [facility] Order Info: [id number] - LIPID Performed By: #### L 500.4100, L500.2500 #### [facility] [address] [place], [address] Lipid Profileon 05-31-2024 Cholesterol [Mass/Vol] 328 mg/dL High 200 [facility] Comment on above: Order Comment: Order Date: 05/25/24 Order Info: [id number] - [facility] Order Info: [id number] - LIPID Result Comment: <200 mg/dL Desirable 200-240 mg/dL Borderline >240 mg/dL High Risk Performed By: #### L 500.4100, L500.2500 #### [facility] [address] [place], [address] Cholesterol in HDL [Mass/Vol] 81 mg/dL Normal [facility] Comment on above: Order Comment: Order Date: 05/25/24 Order Info: [id number] - BMP Order Info: [id number] - LIPID Result Comment: The drugs N-Acetylcysteine and Metamizole may falsely depress this assay. Reference Range HDL <40 mg/dL Low HDL Cholesterol HDL >or= 60 mg/dL High HDL Cholesterol Performed By: #### L 500.4100, L500.2500 #### [facility] [address] [place], [address] Cholesterol in LDL [Mass/Vol] 230 mg/dL High 0-130 [facility] Comment on above: Order Comment: Order Date: 05/25/24 Order Info: [id number] - [facility] Order Info: [id number] - LIPID Performed By: #### L 500.4100, L500.2500 #### [facility] [address] [place], [place], [id number] Cholesterol in VLDL [Mass/Vol] 17 mg/dL Normal 5-40 [facility] Comment on above: Order Comment: Order Date: 05/25/24 Order Info: [id number] - [facility] Order Info: [id number] - LIPID Performed By: #### L 500.4100, L500.2500 #### [facility] [address] [place], [address] Triglyceride [Mass/Vol] 85 mg/dL Normal [facility] Comment on above: Order Comment: Order Date: 05/25/24 Order Info: [id number] [facility] Order Info: [id number] - LIPID Result Comment: The drugs N-Acetylcysteine and Metamizole may falsely depress this assay. Serum Triglycerides Reference Interval Normal <150 mg/dL Borderline high 150 - 199 mg/dL High 200 - 499 mg/dL Very High > or = 500 mg/dL Performed By: #### L 500.4100, L500.2500 #### [facility] [address] [place], [address] Absolute lymphocyte countOrd ered By: Willem Morales on 05-08-2023 Lymphocytes Auto (Unsp spec) [#/Vol] 1.21 10*3/uL 0.83-4.51 [facility] Basophil percentageOrdered B y: Willem Morales on 05-08-2023 Basophils/100 WBC (Bld) 0.3 % 0-1 [facility] Chloride [Moles/Vol] 110 mmol/L 98-107 [facility] Cholesterol [Mass/Vol] 263 mg/dL <200 [facility] Comment on above: <200 mg/dL Desirable 200-240 mg/dL Borderline >240 mg/dL High Risk Eosinophils/100 WBC (Bld) 0.3 % 0-5 [facility] Glucose [Mass/Vol] 91 mg/dL 74-106 [facility] Neutrophils (Bld) [#/Vol] 6.0 10*3/uL 2.0-7.7 [facility] Neutrophils/100 WBC (Bld) 78.1 % 47-70 [facility] Potassium [Moles/Vol] 3.7 mmol/L 3.5-5.1 [facility] Sodium [Moles/Vol] 141 mmol/L 136-145 [facility] Triglyceride [Mass/Vol] 87 mg/dL <199 [facility] Comment on above: The drugs N-Acetylcy steine and Metamizole may falsely depress this assay.Serum Triglycerides Reference Interval Normal <150 mg/dL Borderline high 150 - 199 mg/dL High 200 - 499 mg/dL Very High > or = 500 mg/dL WBC (Bld) [#/Vol] 7.7 10*3/uL 4.4-11.0 [facility] Blood erythrocytes count (nu mber/volume)Ordered By: Willem Morales on 05-08-2023 RBC (Bld) [#/Vol] 4.97 10*6/uL 4.2-5.4 [facility] Blood hemoglobin measurement (mass/volume)Ordered By: Willem Morales on 05-08-2023 Hemoglobin (Bld) [Mass/Vol] 13.8 g/dL 12.0-15.0 [facility] Blood lymphocytes/100 leukoc ytesOrdered By: Willem Morales on 05-08-2023 Lymphocytes/100 WBC (Bld) 15.7 % 19-41 [facility] Blood monocytes/100 leukocyt esOrdered By: Willem Morales on 05-08-2023 Monocytes/100 WBC (Bld) 5.3 % 0-10 [facility] Blood platelet mean volumeOr dered By: Willem Morales on 05-08-2023 Platelet mean volume (Bld) [Entitic vol] 11.5 fL 6.2-12.0 [facility] Determination of erythrocyte mean corpuscular volume (MCV)Ordered By: Willem Morales on 05-08-2023 MCV (RBC) [Entitic vol] 88.5 fL 81-99 [facility] Hematocrit Auto (Bld) [Volum e fraction]Ordered By: Willem Morales on 05-08-2023 Hematocrit (Bld) [Volume fraction] 44.0 % 37-47 [facility] - Chemistry and C hemistry - challengeOrdered By: Willem Morales on 05-08-2023 CO2 [Moles/Vol] 26.0 mmol/L 21.0-32.0 [facility] Urea nitrogen/Creatinine [Mass ratio] 14.2 mg/mg 10-20 [facility] - Hematology and Cell countsOrdered By: Willem Morales on 05-08-2023 Erythrocyte distribution width (RBC) [Entitic vol] 43.3 fL 35.1-43.9 [facility] Erythrocyte distribution width (RBC) [Ratio] 13.4 % 11.6-14.6 [facility] Immature granulocytes/100 WBC (Bld) 0.300 % 0.0-0.9 [facility] Comment on above: IG% - Immature Granu locytes (promyelocytes, myelocytes and metamyelocytes) > 1% indicates that a LEFT SHIFT is Present. MCH (RBC) [Entitic mass] 27.8 pg 27.0-32.0 [facility] Nucleated RBC/100 WBC (Bld) [Ratio] 0 % 0-5 [facility] MCHC Auto (RBC) [Mass/Vol]Or dered By: Willem Morales on 05-08-2023 MCHC (RBC) [Mass/Vol] 31.4 g/dL 32-36 [facility] No Panel InformationOrdered By: Willem Morales on 05-08-2023 Estimated GFR (MDRD) Amer 69 mL/min >60 [facility] Comment on above: GFR Calc Estimated GFR (MDRD) Non-Af Amer 57 mL/min >60 [facility] Comment on above: Non- GFR Calc Thyroid Stimulating Hormone (TSH) 1.45 uIU/mL 0.358-3.74 [facility] Platelets bldOrdered By: Tara Morales on 05-08-2023 Platelets (Bld) [#/Vol] 222 10*3/uL 150-450 [facility] Serum or plasma calcium chivo urement (mass/volume)Ordered By: Willem Morales on 05-08-2023 Calcium [Mass/Vol] 9.0 mg/dL 8.5-10.1 [facility] Serum or plasma cholesterol in HDL measurement (mass/volume)Ordered By: Willem Morales on 05-08-2023 Cholesterol in HDL [Mass/Vol] 68 mg/dL >40 [facility] Comment on above: The drugs N-Acetylcy steine and Metamizole may falsely depress this assay. Reference Range HDL <40 mg/dL Low HDL Cholesterol HDL >or= 60 mg/dL High HDL Cholesterol Serum or plasma cholesterol in VLDL measurement (mass/volume)Ordered By: Willem Morales on 05-08-2023 Cholesterol in VLDL [Mass/Vol] 17 mg/dL 5-40 [facility] Serum or plasma creatinine m easurement (mass/volume)Ordered By: Willem Morales on 05-08-2023 Creatinine [Mass/Vol] 1.06 mg/dL 0.55-1.02 [facility] Comment on above: The validity of the calculated GFR & GFRAA in patients over 70 years has not been determined. Clinical correlation is essential. Serum or plasma low density lipoprotein (LDL) cholesterol measurement (mass/volume)Ordered By: Willem Morales on 05-08-2023 Cholesterol in LDL [Mass/Vol] 178 mg/dL 0-130 [facility] Serum or plasma urea nitroge n measurement (mass/volume)Ordered By: Willem Morales on 05-08-2023 Urea nitrogen [Mass/Vol] 15 mg/dL 7-18 [facility] Thin prep Papanicolaou smear with manual screeningOrdered By: Willem Morales on 05-08-2023 Thin prep Papanicolaou smear with manual screening 5 5-15 [facility] KACIE SCREENING W TOMOon 05-06 [facility] KACIE DIAGNOSTIC LTon 11-07-19 [facility] [address] CT CARDIAC SCORINGon TH CT CARDIAC SCORING Patient Name: RASHAAD HIDALGOI STUDY: CT CARDIAC SCORING; 05/03/2021 4:38 pm INDICATION: E78.00 Pure hypercholesterolemia , unspecified-CPT 86882. COMPARISON: None. ACCESSION NUMBER(S): [id number] ORDERING CLINICIAN: KEI MORALES TECHNIQUE: Using prospective ECG gating, CT scan of the coronary arteries was performed without intravenous contrast. Coronary calcium scoring was performed according to the method of Agatston. FINDINGS: The score and distribution of calcium in the coronary arteries is as follows: LM 0 LAD 1 LCx 0 RCA 0 Total 1 The visualized mid/lower ascending thoracic aorta measures 3.5 cm in diameter. The heart is normal in size. No pericardial effusion is present. No gross evidence of mediastinal or hilar lymphadenopathy or masses is identified. The visualized segments of the lungs are normally expanded. The visualized subdiaphragmatic structures appear intact. IMPRESSION: 1. Coronary artery calcium score of 1*. *Coronary artery calcium scoring may be helpful in predicting the risk for future coronary heart disease events. According to the [employer] Clinical Expert Consensus Task Force, such testing provides important prognostic information in patients with more than one coronary heart disease risk factor. The coronary artery calcium score correlates with the annual risk of a non-fatal myocardial infarction or coronary heart disease . Coronary artery score Annual Risk 0-99 0.4% 100-399 1.3% >400 2.4% These three breakpoints correspond to lower, intermediate and high risk states for future coronary events. Such information should be used, along with appropriate clinical judgment, to make decisions regarding the intensity of risk factor management strategies to treat blood lipids and to modify other non-lipid coronary risk factors. Reference: Stafford P et al. Circulation. 2007; 115:402-426 Electronically signed by: RUDI FLORES MD [facility] Vital Signs Date Time Vital Sign Value Performing Clinician Marcelo bermeo 09-28-2024 13:08-0400 Body height 161 cm Duog Askew MD Work Phone: [facility] 09-28-2024 13:08-0400 Body mass index (BMI) [Ratio] 21.17 kg/m2 Doug Askew MD Work Phone: [facility] 09-28-2024 13:08-0400 Body weight 54.88 kg Doug Askew MD Work Phone: [facility] 09-28-2024 13:08-0400 Diastolic blood pressure 74 mm[Hg] Doug Askew MD Work Phone: [facility] 09-28-2024 13:08-0400 Systolic blood pressure 130 mm[Hg] Doug Askew MD Work Phone: [facility] 04-23-2022 13:59-0500 Body height 157.5 cm Doug Askew MD Work Phone: [facility] 04-23-2022 13:59-0500 Body weight 59.42 kg Doug Askew MD Work Phone: [facility] 04-23-2022 13:59-0500 Diastolic blood pressure 62 mm[Hg] Doug Askew MD Work Phone: [facility] 04-23-2022 13:59-0500 Systolic blood pressure 108 mm[Hg] Doug Askew MD Work Phone: [facility] Encounters Encounter Date Encounter Type Care Provider Facility Start: 11-01-2024 End: 11-01-2024 Subsequent hospital visit by physician [place] [address] [address] [facility] Comment on above: Hyperlipemia Start: 11-01-2024 End: 11-01-2024 ambulatory [facility] Start: 09-28-2024 End: 09-28-2024 Patient encounter procedure Doug Askew MD Work Phone: OB/Gynecology Comment on above: Encounter for gyneco logical examination (general) (routine) without abnormal findings (Primary Dx); Encounter for screening mammogram for breast cancer Start: 09-28-2024 End: 09-28-2024 Patient encounter status Doug Askew MD Work Phone: [facility] Start: 09-28-2024 End: 09-28-2024 ambulatory DOUG ASKEW Facility:[facility] Start: 09-28-2024 Encounter for gynecological examination (general) (routine) without abnormal findings DOUG ASKEW [facility] Start: 09-28-2024 End: 09-28-2024 Subsequent hospital visit by physician Screen Mammo [facility] Mammogram Comment on above: Encounter for screen ing mammogram for malignant neoplasm of breast [Z12.31] Start: 07-29-2024 End: 07-29-2024 ambulatory Doug Askew MD Work Phone: OB/Gynecology Comment on above: Mammogram with Tomos ynthesis Start: 05-31-2024 End: 05-31-2024 ambulatory Kei Morales Facility:[facility] Start: 05-09-2023 Documentation procedure Mammog chago Coordinator [facility] Start: 05-09-2023 Letter encounter Mammography Coordinator [facility] Department Start: 05-08-2023 End: 05-08-2023 ambulatory [facility] Work Phone: Start: 05-08-2023 End: 05-08-2023 Patient encounter procedure [facility] Start: 05-08-2022 Documentation procedure [facility]og [facility]ago [facility] Start: 05-08-2022 Letter encounter Mammography Coordinator [facility] Department Start: 05-06-2022 End: 05-06-2022 Subsequent hospital visit by physician Screen Mammo [facility] Mammogram Comment on above: Encounter for screen ing mammogram for malignant neoplasm of breast [Z12.31] Start: 04-23-2022 End: 04-23-2022 Patient encounter procedure Doug Askew MD Work Phone: OB/Gynecology Comment on above: Encounter for gyneco logical examination without abnormal finding (Primary Dx); Encounter for screening mammogram for malignant neoplasm of breast; Dense breasts Start: 04-23-2022 End: 04-23-2022 Patient encounter status Doug Askew MD Work Phone: OB/Gynecology Start: 03-25-2022 Telephone encounter Doug armstrong MD Work Phone: OB/Gynecology Comment on above: Orders Start: 11-06-2021 End: 11-06-2021 Subsequent hospital visit by physician Diagnostic Mammo [facility] Mammogram Comment on above: Abnormal mammogram [ R92.8] Procedures Date Procedure Procedure Detail Performing Clinician Start: 11-01-2024 Ct heart no contrast quant eval coronry calcium Kei Morales MD Work Phone: Start: 09-28-2024 Mammography [facility] Start: 05-06-2022 KACIE SCREENING W OTF Tereza Askew MD Work Phone: Start: 05-06-2022 Mammography Mammograph y Coordinator Start: 11-06-2021 Diagnostic mammograp hy computer-aided detcj uni Alfred Dobson MD Work Phone: Start: 04-19-2021 Mammography Diagnostic Wstr Start: 07-05-2013 Lipid 1996 panel - S clif or Plasma Screen Wstr H/O: surgery History of basal cell carcinoma excision Plan of Treatment Date Care Activity Detail Author Start: 04-03-2026 HPV TESTING HPV TESTING [facility] Start: 04-03-2026 PAP TESTING PAP TESTING [facility] Start: 04-03-2026 Screening for malign ant neoplasm of cervix [facility] Start: 02-12-2026 DTaP/Tdap/Td Vaccine s (2 - Td or Tdap) DTaP/Tdap/Td Vaccines (2 - Td or Tdap) [facility] Start: 02-12-2026 Urine microalbumin profile DTaP,Tdap,Td Vaccine (2 - Td or Tdap) [facility] Start: 09-29-2025 End: 09-29-2025 Patient encounter procedure Mammogram Comment on above: Encounter for screen ing mammogram for breast cancer [Z12.31] Annual Start: 09-28-2025 Screening for malign ant neoplasm of breast Mammogram [facility] Start: 01-31-2025 Influenza vaccination Influenz a Vaccine (Season Ended) [facility] Start: 09-28-2024 End: 09-28-2024 Patient encounter procedure OB/Gynecology Comment on above: no issues just joann edmond annual exam Start: 05-08-2024 Screening for malign ant neoplasm of breast Mammogram Screening [facility] Start: 02-01-2024 COVID-19 Vaccine ( season) COVID-19 Vaccine ( season) [facility] Start: 02-01-2024 Covid-19 Vaccine ( season) Covid-19 Vaccine ( season) [facility] Start: 02-01-2024 Influenza vaccination Influenza Vacc ine (#1) [facility] Start: 05-06-2023 Mammography [facility] Start: 01-31-2023 Covid-19 Vaccine ( season) Covid-19 Vaccine () [facility] Start: 01-31-2023 Covid-19 Vaccine ( season) Covid-19 Vaccine () [facility] Start: 01-31-2023 Influenza vaccination Influenza Vacc ine (#1) [facility] Start: 06-02-2022 Depression Assessment Depression Ass essment [facility] Start: 04-19-2022 Mammography MAMMOGRAM [facility] Start: 01-31-2022 Influenza vaccination C [facility] Start: 07-23-2021 COVID-19 VACCINE (5 - Booster for Pfizer series) COVID-19 VACCINE (5 - Booster for Pfizer series) [facility] Start: 06-02-2021 [facility]MENT [facility] Start: 07-05-2018 Lipid 1996 panel - S clif or Plasma Lipid Screening [facility] Start: 07-05-2018 Lipid panel Lipid Screening [facility] Start: 07-05-2018 LIPID SCREEN LIPID SCREEN [facility] Start: 2016 Pneumococcal vaccination Pneum ococcal Vaccine (1 of 1 - PCV) [facility] Start: 2016 Pneumococcal Vaccine : 50+ (1 of 1 - PCV) Pneumococcal Vaccine: 50+ (1 of 1 - PCV) [facility] Start: 2016 SHINGRIX VACCINE (1 of 2) SHINGRIX VACCINE (1 of 2) [facility] Start: 2016 Zoster Vaccines (1 of 2) Zoste r Vaccines (1 of 2) [facility] Start: 07-05-2016 DIABETES SCREEN DIABETES SCREEN [facility] Start: 07-05-2016 Diabetes Screening Diabetes Screenin g [facility] Start: 11-14-2011 COLOGUARD (FIT-DNA) COLOGUARD (FIT-D NA) [facility] Start: 11-14-2011 Colonoscopy COLONOSCOPY [facility] Start: 11-14-2011 COLORECTAL CANCER SCREENING COLORECTAL CANCER SCREENING [facility] Start: 11-14-[address] COLONOGRAPHY [facility] Start: 11-14-2011 FECAL OCCULT BLOOD FECAL OCCULT BLOO D [facility] Start: 11-14-2011 Screening for malign ant neoplasm of colon [facility] Start: 11-14-2011 SIGMOIDOSCOPY SIGMOIDOSCOPY [facility] Start: 11-14-1987 Screening for malign ant neoplasm of cervix [facility] Start: 1985 Hepatitis B Vaccine (1 of 3 - 19+ 3-dose series) Hepatitis B Vaccine (1 of 3 - 19+ 3-dose series) [facility] Start: 1985 Hepatitis B Vaccines (1 of 3 - 19+ 3-dose series) Hepatitis B Vaccines (1 of 3 - 19+ 3-dose series) [facility] Start: 1985 Urine microalbumin profile DTAP,TDAP,TD (1 - Tdap) [facility] Start: 1984 Anxiety Screening Anxiety Screening [facility] Start: 1984 Depression Screening Depression Scre ening [facility] Start: 1984 HEPATITIS C SCREENING HEPATITIS C [facility] Start: 1984 Hepatitis C screening Hepatitis C [facility] Start: 1984 HIV SCREENING HIV SCREENING [facility] Start: 1984 HIV screening HIV Screening [facility] Start: 1978 Adult depression screening assessment DEPRESSION SCREENING [facility] Start: 11-14-1967 MMR Vaccines (1 of 1 - Standard series) MMR Vaccines (1 of 1 - Standard series) [facility] Start: 1966 HEPATITIS B (1 of 3 - 3-dose series) HEPATITIS B (1 of 3 - 3-dose series) [facility] Start: 1966 Hepatitis B Vaccine (1 of 3 - 3-dose series) Hepatitis B Vaccine (1 of 3 - 3-dose series) [facility] Start: 1966 HIV screening HIV Screening [facility] Start: 1966 Lipid panel Lipid Panel [facility] Start: 1966 Screening for malign ant neoplasm of colon [facility] Start: 1966 Yearly Adult Physical Yearly Adult P hysical [facility] End: 08-28-2025 DBT Breast - bilateral screening AKCIE SCREENING W OTF Radiology Routine Encounter for screening mammogram for malignant neoplasm of breast 1 Occurrences starting 07/29/2024 until 08/28/2025 [facility] Work Phone: Comment on above: 1 Occurrences starti ng 07/29/2024 until 08/28/2025 End: 10-28-2025 DBT Breast - bilateral screening KACIE SCREENING W OTF Radiology Routine Encounter for screening mammogram for breast cancer 1 Occurrences starting 09/28/2024 until 10/28/2025 [facility] Work Phone: Comment on above: 1 Occurrences starti ng 09/28/2024 until 10/28/2025 DBT Breast - bilater al screening KACIE SCREENING W OTF Radiology Routine Encounter for screening mammogram for malignant neoplasm of breast 09/28/2024 2:26 PM EDT [facility] Work Phone: End: 04-24-2023 KACIE SCREENING W OTF KACIE SCREENING W [facility] Radiology Routine Encounter for screening mammogram for malignant neoplasm of breast 1 Occurrences starting 03/26/2022 until 04/24/2023 [facility] Work Phone: Comment on above: 1 Occurrences starti ng 03/26/2022 until 04/24/2023 End: 05-23-2023 KACIE SCREENING W OTF KACIE SCREENING W OTF Radiology Routine Encounter for screening mammogram for malignant neoplasm of breast Dense breasts 1 Occurrences starting 04/23/2022 until 05/23/2023 [facility] Work Phone: Comment on above: 1 Occurrences starti ng 04/23/2022 until 05/23/2023 [facility] Immunizations Immunization Date Immunization Notes Care Provider Fa cility 09-07-2020 Covid (Pfizer) [facility] 08-17-2020 Covid (Pfizer) [facility] 07-31-2020 COVID-19 vaccine, ag e 12+ yr (PFIZER-BIONTECH - [facility]) Diagnostic Wstr [facility] Payers Date Payer Category Payer Self-pay [id number] 2023 [employer] Tramaine diaz Managed Care [facility] [id number] 2023 Unknown [id number] 2021 Blue [employer] Blue Shield [id number] 2021 Unknown [employer] BLUE CARD PPO OOS [id number] 2021-Present [phone] [address] [place] [address] PPO [id number] 2021 Unknown [employer]M BLUE CARD PPO OOS [id number] 2021-Present [phone] [address] [place] [address] PPO [id number] 2016 Unknown ANTHEM [id number] 1965 Unknown [id number] Unknown [id number] Social History Date Type Detail Facility Start: 09-03-2011 End: 04-23-2022 Tobacco smoking status NHIS Never smoked tobacco [facility] Start: 06-22-2021 End: 09-28-2024 Alcohol intake Current drinker of alcohol (finding) [facility] Start: 04-03-2021 History SDOH Alcohol Comment occasionally [facility] Start: 1965 Sex Assigned At Not on file C [facility] Start: 10-27-2021 End: 04-23-2022 Exposure to SARS-CoV-2 (event) Not sure [facility] Start: 09-03-2011 End: 04-23-2022 Tobacco use and exposure Smokeless tobacco non-user [facility] Start: 04-23-2022 End: 10-18-2022 History of Social function [facility] Start: 04-23-2022 End: 10-18-2022 Tobacco use panel [facility] National Score (1-100), lower number is lower risk 57 [facility] Start: 05-31-2021 Tobacco smoking status NHIS Unknown if ever smoked [facility] Start: 1965 Sex Assigned At Female W [facility] Functional Status Date Assessment Result Facility 11-10-2014 Are you deaf, or do you have serious difficulty hearing No 11/10/2014 10:32 AM Daja Bridges RN No [facility] 11-10-2014 Are you blind, or do you have serious difficulty seeing, even when wearing glasses No 11/10/2014 10:32 AM Daja Bridges RN No [facility] 11-10-2014 Do you have serious difficulty walking or climbing stairs No 11/10/2014 10:32 AM Daja Bridges RN No [facility] 11-10-2014 Do you have difficul ty dressing or bathing No 11/10/2014 10:32 AM Daja Bridges RN No [facility] 11-10-2014 Because of a physica l, mental, or emotional condition, do you have difficulty doing errands alone such as visiting a physician's office or shopping No 11/10/2014 10:32 AM Daja Bridges RN No [facility] Mental Status Date Assessment Result Facility 11-10-2014 Because of a physica l, mental, or emotional condition, do you have serious difficulty concentrating, remembering, or making decisions No 11/10/2014 10:32 AM Daja Bridges RN No [facility] Clinical Notes 08-16-2014 to 09-28-2024 [place] Chu, RT(R) - 09/28/2024 2:20 PM Doug Santiago MD - 09/28/2024 1:03 PM EDTTelephone Encounter - Doug Askew MD - 07/29/2024 9:17 AM Romaine Askew MD - 04/23/2022 1:55 PM EST Note Date & Type Note Facility 09-28-2024 History of Presen t illness Narrative Radiology Service Progress Note PATIENT NAME: Naren Hidalgo DATE OF SERVICE: September 28, 2024 TIME: 2:11 PM PATIENT IDENTITY VERIFICATION COMPLETED USING TWO (2) IDENTIFIERS: Name and Date of confirmed by patient verbally. FALL SCREENING: Has the patient had 2 falls in the last year or 1 fall with injury or currently using an Ambulatory Assistive Device (Walker, Cane, Wheelchair, Crutches, etc.)? No PATIENT GENDER DATA: Assigned female at . status: : No status: NO. PATIENT RELEVANT IMPLANT DATA REVIEWED: Not Applicable PATIENT PRESENTS WITH AN IMPLANTABLE OR ATTACHED ARMORED CAR MESSENGER: No RADIOLOGY DEPARTMENT: Mammography PERIPHERAL IV DATA: Not applicable SIGNED BY: RT Delphine(R) September 28, 2024 2:11 PM documented in this encounter [facility] 09-28-2024 Note HNO ID: [id number] Author: ETTA CHU RT(Kailey) Service: ? Author Type: Technologist Type: Progress Notes Filed: 09/28/2024 14:11 Note Text: Radiology Service Progress Note PATIENT NAME: Naren Hidalgo DATE OF SERVICE: September 28, 2024 TIME: 2:11 PM PATIENT IDENTITY VERIFICATION COMPLETED USING TWO (2) IDENTIFIERS: Name and Date of confirmed by patient verbally. FALL SCREENING: Has the patient had 2 falls in the last year or 1 fall with injury or currently using an Ambulatory Assistive Device (Walker, Cane, Wheelchair, Crutches, etc.)? No PATIENT GENDER DATA: Assigned female at . status: : No status: NO. PATIENT RELEVANT IMPLANT DATA REVIEWED: Not Applicable PATIENT PRESENTS WITH AN IMPLANTABLE OR ATTACHED ARMORED CAR MESSENGER: No RADIOLOGY DEPARTMENT: Mammography PERIPHERAL IV DATA: Not applicable SIGNED BY: Etta Chu, RT(R) September 28, 2024 2:11 PM [facility] 09-28-2024 Note HNO ID: [id number] Author: DOUG ASKEW MD Service: ? Author Type: Physician Type: Progress Notes Filed: 09/28/2024 13:29 Note Text: Customer Support Coordinator offered: Patient declines. maria esther Maldonaod is a 58 year old who presents for an annual gynecologic exam without complaints. Postmenopausal: Yes HRT use: No. Still get period: No LMP: 09/08/2014 Menopause symptoms: None Time with current partner: 41 years Number of lifetime partners: 3 Contraception frequency: Always Contraception: Tubal Ligation HPV vaccine: No; Last pap smear: 04/03/2021 normal, HPV negative History of abnormal pap: No, all prior PAP smears have been normal Bothersome pelvic pain: No Last mammogram: today History of abnormal mammogram: Yes OB History Gravida2 Para2 Term2 Preterm0 AB0 Living2 SAB0 IAB0 Ectopic0 Multiple0 Live Births0 FAMILY HISTORY Problem Relation Age of Onset Diabetes Father insulin Hypertension Father SOCIAL HISTORY Social History Tobacco Use Smoking status: Never Smokeless tobacco: Never Vaping Use Vaping status: Never Used Substance Use Topics Alcohol use: Yes Comment: occasionally Drug use: No REVIEW OF SYSTEMS Abdomen: No abdominal pain, nausea, vomiting, diarrhea, or constipation. No bloating, early satiety, indigestion, or increased flatulence. Bladder: No dysuria, gross hematuria, urinary frequency, urinary urgency, or incontinence Breast: No breast lumps, nipple d/c, overlying skin changes, redness or skin retraction Allergies and current medication updated:Yes SENSITIVE EXAM: The sensitive examination was discussed with the Patient or Patient's Authorized Car Inspector. As applicable, any other physician, advance practice provider, medical student, or other health professional student that will be observing or involved in the sensitive examination for educational or training purposes was discussed with the Patient or Authorized Car Inspector. The Patient or Authorized Car Inspector has agreed to proceed with the sensitive examination. (Sensitive examination includes inspection and/or palpation of the breasts, pelvis, prostate and anorectal regions). EXAM: BP 130/74 Ht 5' 3.386" (1.61m) Wt 121 lb (54.9kg) LMP 09/08/2014 BMI 21.17 kg/(m2). GENERAL: pleasant, female in no apparent distress BREAST: soft, non-tender, symmetric, no dominant mass, normal nipple-areolar complex, no lymphadenopathy, and no nipple discharge CHEST: Normal inspiratory effort ABDOMEN: soft, non-tender, and no masses PELVIC: external genitalia normal, no vulvar lesions, no cervical lesions, good vaginal support, normal appearing perineal body and perianal region BIMANUAL: uterus normal size, shape and consistency, no adnexal masses, and non-tender RECTOVAGINAL: deferred. NEURO: alert and oriented x3,exam grossly non-focal EXTREMITIES: normal ASSESSMENT/PLAN: 1) Health maintenance: Pap/HPV up to date. Mammogram today Nutrition, exercise and routine health maintenance exams reviewed. Colon cancer screening: up to date with screening - needs repeat 2026 2) Follow up one year or sooner as needed Doug Askew MD [facility] 09-28-2024 History of Presen t illness Narrative Customer Support Coordinator offered: Patient declines. maria esther Maldonado is a 58 year old who presents for an annual gynecologic exam without complaints. Postmenopausal: Yes HRT use: No. Still get period: No LMP: 09/08/2014 Menopause symptoms: None Time with current partner: 41 years Number of lifetime partners: 3 Contraception frequency: Always Contraception: Tubal Ligation HPV vaccine: No; Last pap smear: 04/03/2021 normal, HPV negative History of abnormal pap: No, all prior PAP smears have been normal Bothersome pelvic pain: No Last mammogram: today History of abnormal mammogram: Yes OB History Gravida2 Para2 Term2 Preterm0 AB0 Living2 SAB0 IAB0 Ectopic0 Multiple0 Live Births0 FAMILY HISTORY Problem Relation Age of Onset Diabetes Father insulin Hypertension Father SOCIAL HISTORY Social History Tobacco Use Smoking status: Never Smokeless tobacco: Never Vaping Use Vaping status: Never Used Substance Use Topics Alcohol use: Yes Comment: occasionally Drug use: No REVIEW OF SYSTEMS Abdomen: No abdominal pain, nausea, vomiting, diarrhea, or constipation. No bloating, early satiety, indigestion, or increased flatulence. Bladder: No dysuria, gross hematuria, urinary frequency, urinary urgency, or incontinence Breast: No breast lumps, nipple d/c, overlying skin changes, redness or skin retraction Allergies and current medication updated:Yes SENSITIVE EXAM: The sensitive examination was discussed with the Patient or Patient's Authorized Car Inspector. As applicable, any other physician, advance practice provider, medical student, or other health professional student that will be observing or involved in the sensitive examination for educational or training purposes was discussed with the Patient or Authorized Car Inspector. The Patient or Authorized Car Inspector has agreed to proceed with the sensitive examination. (Sensitive examination includes inspection and/or palpation of the breasts, pelvis, prostate and anorectal regions). EXAM: BP 130/74 Ht 5' 3.386" (1.61m) Wt 121 lb (54.9kg) LMP 09/08/2014 BMI 21.17 kg/(m^2). GENERAL: pleasant, female in no apparent distress BREAST: soft, non-tender, symmetric, no dominant mass, normal nipple-areolar complex, no lymphadenopathy, and no nipple discharge CHEST: Normal inspiratory effort ABDOMEN: soft, non-tender, and no masses PELVIC: external genitalia normal, no vulvar lesions, no cervical lesions, good vaginal support, normal appearing perineal body and perianal region BIMANUAL: uterus normal size, shape and consistency, no adnexal masses, and non-tender RECTOVAGINAL: deferred. NEURO: alert and oriented x3,exam grossly non-focal EXTREMITIES: normal ASSESSMENT/PLAN: 1) Health maintenance: Pap/HPV up to date. Mammogram today Nutrition, exercise and routine health maintenance exams reviewed. Colon cancer screening: up to date with screening - needs repeat 2026 2) Follow up one year or sooner as needed Doug Askew MD documented in this encounter [facility] 07-29-2024 Telephone encounter Note Ordered Doug Askew MD [facility] 07-29-2024 Miscellaneous Notes Ordered Doug Askew MD documented in this encounter [facility] 05-09-2023 Miscellaneous Notes May 12, 2023 PID: [id number] Naren Hidalog [address] [place] [address] Dear Ms. Hidalgo, We are pleased to inform you that the results of your recent breast imaging exam on 05/08/2023 are normal. Early detection of cancer is very important. We also understand recommendations regarding breast cancer screening are controversial. Please discuss with your primary care provider which strategy is best for you and whether a mammogram is right for you. Your imaging studies and report will be kept on file at [facility] as part of your permanent medical record and are available for your continuing care. Thank you for allowing us to help in meeting your health care needs. Sincerely, Dr. Milton Interpreting Radiologist [facility] (Normal over 40) documented in this encounter [facility] 05-08-2022 Miscellaneous Notes May 08, 2022 PID: [id number] Naren De La Cruzler [address] [place] [address] Dear Ms. Hidalgo, We are pleased to inform you that the results of your recent breast imaging exam on 05/06/2022 are normal. Your mammogram demonstrates that you have dense breast tissue, which could hide abnormalities. Dense breast tissue, in and of itself, is a relatively common condition. Therefore, this information is not provided to cause undue concern; rather, it is to raise your awareness and promote discussion with your health care provider regarding the presence of dense breast tissue in addition to other risk factors. Early detection of cancer is very important. We also understand recommendations regarding breast cancer screening are controversial. Please discuss with your primary care provider which strategy is best for you and whether a mammogram is right for you. Your imaging studies and report will be kept on file at [facility] as part of your permanent medical record and are available for your continuing care. Thank you for allowing us to help in meeting your health care needs. Sincerely, Dr. Mayen Interpreting Radiologist [facility] (Normal over 40) documented in this encounter [facility] 04-23-2022 History of Presen t illness Narrative Naren is a 56 year old who presents for an annual gynecologic exam without complaints. Postmenopausal: Yes HRT use: No. 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 LMP: 09/08/2014, Ablation Age at Menarche: Age at First : Age at Menopause: Deputy [employer] History Comments: Sexual Activity: Yes; Male Contraception: Tubal Ligation PAST MEDICAL HISTORY Diagnosis Date Abnormal mammogram 06/05/2021 Other and unspecified hyperlipidemia PAST SURGICAL HISTORY Procedure Laterality Date BX BREAST W/DEVICE 1ST LESION STEREOTACTIC GUID Left 06/15/2021 PAST SURGICAL HISTORY OF uterus ablasion PAST SURGICAL HISTORY OF right forearm carcinoma removal TUBAL LIGATION, 06/02/1992 FAMILY HISTORY Problem Relation Age of Onset Diabetes Father insulin Hypertension Father SOCIAL HISTORY Social History Tobacco Use Smoking status: Never Smokeless tobacco: Never Vaping Use Vaping Use: Never used Substance Use Topics Alcohol use: Yes Comment: occasionally Drug use: No REVIEW OF SYSTEMS Abdomen: No abdominal pain, nausea, vomiting, diarrhea, or constipation. No bloating, early satiety, indigestion, or increased flatulence. Bladder: No dysuria, gross hematuria, urinary frequency, urinary urgency, or incontinence Breast: No breast lumps, nipple d/c, overlying skin changes, redness or skin retraction Allergies and current medication updated:Yes EXAM: BP 108/62 Ht 5' 2" (1.58m) Wt 131 lb (59.4kg) LMP 09/08/2014 BMI 23.95 kg/(m^2). GENERAL: pleasant, female in no apparent distress BREAST: soft, non-tender, symmetric, no dominant mass, normal nipple-areolar complex, no lymphadenopathy, and no nipple discharge CHEST: Normal inspiratory effort ABDOMEN: soft, non-tender, and no masses PELVIC: external genitalia normal, normal Bartholin's glands, urethra, [place]'s glands, no vulvar lesions, no cervical lesions, normal appearing perineal body and perianal region BIMANUAL: uterus normal size, shape and consistency, no adnexal masses, and non-tender RECTOVAGINAL: rectovaginal exam negative for any masses or nodularity. NEURO: alert and oriented x3,exam grossly non-focal EXTREMITIES: normal ASSESSMENT/PLAN: 1) Health maintenance: Pap/HPV up to date. Mammogram scheduled Colon cancer screening: up to date with screening 2) Follow up one year or sooner as needed Doug Askew MD documented in this encounter [facility] 03-28-2022 Miscellaneous Notes Patient scheduled for 05/06/2022 via myDocket 03/28 Please contact patient to schedule mammogram. Lizzeth Carolina RN Done Doug Askew MD Mamm with OTF order pending. Will need to forward message back to PSS once signed. Thank you. Nella Marrero RN Patient sent my chart message requesting appointment for annual. She is scheduled with Dr Askew 04/23/2022 however there is no current Otf mammography order and it appears patient is to return to normal mammography screenings per last visit on 11/06/21. Please [address] order and send back to scheduling. documented in this encounter [facility] 11-06-2021 History of Presen t illness Narrative Radiology Service Progress Note PATIENT NAME: Naren Hidalgo DATE OF SERVICE: November 06, 2021 TIME: 8:00 AM PATIENT IDENTITY VERIFICATION COMPLETED USING TWO (2) IDENTIFIERS: Name and Date of confirmed by patient verbally. FALL SCREENING: Has the patient had 2 falls in the last year or 1 fall with injury or currently using an Ambulatory Assistive Device (Walker, Cane, Wheelchair, Crutches, etc.)? No PATIENT GENDER DATA: Female. status: : No status: NO. PATIENT RELEVANT IMPLANT DATA REVIEWED: Not Applicable RADIOLOGY DEPARTMENT: Mammography PERIPHERAL IV DATA: Not applicable SIGNED BY: RT Delphine(R) November 06, 2021 8:00 AM documented in this encounter [facility] 08-16-2014 History of Past i llness Narrative Problem Noted Date Resolved Date Abnormal uterine bleeding (AUB) 08/16/2014 11/10/2014 Lump or mass in breast 09/03/2011 5 documented as of this encounter (statuses as of 11/07/2021) [facility] History of Past illness Narrative* Problem Noted Date Resolved Date Abnormal uterine bleeding (AUB) 08/16/2014 11/10/2014 Lump or mass in breast 09/03/2011 5 documented as of this encounter (statuses as of 03/28/2022) [facility] History of Past illness Narrative* Problem Noted Date Resolved Date Abnormal uterine bleeding (AUB) 08/16/2014 11/10/2014 Lump or mass in breast 09/03/2011 5 documented as of this encounter (statuses as of 04/23/2022) [facility] History of Past illness Narrative* Problem Noted Date Resolved Date Abnormal uterine bleeding (AUB) 08/16/2014 11/10/2014 Lump or mass in breast 09/03/2011 5 documented as of this encounter (statuses as of 05/10/2022) [facility] History of Past illness Narrative* Problem Noted Date Diagnosed Date Resolved Date Abnormal uterine bleeding (AUB) 08/16/2014 11/10/2014 Lump or mass in breast 09/03/201108/16 documented as of this encounter (statuses as of 04/06/2023) [facility] History of Past illness Narrative* Problem Noted Date Diagnosed Date Resolved Date Abnormal uterine bleeding (AUB) 08/16/2014 11/10/2014 Lump or mass in breast 09/03/201108/16 documented as of this encounter (statuses as of 05/13/2023) [facility] note* Diagnosis Abnormal mammogram Abnormal mammogram, unspecified documented in this encounter [facility] note* Diagnosis Encounter for screening mammogram for malignant neoplasm of breast- Primary Other screening mammogram documented in this encounter [facility] note* Diagnosis Encounter for gynecological examination without abnormal finding- Primary Routine gynecological examination Encounter for screening mammogram for malignant neoplasm of breast Other screening mammogram Dense breasts Inconclusive mammogram documented in this encounter [facility] note* Diagnosis Encounter for screening mammogram for malignant neoplasm of breast Other screening mammogram documented in this encounter [facility] noteNo assessment information [facility] Work Phone: Evaluation note* Diagnosis Encounter for screening mammogram for malignant neoplasm of breast- Primary Other screening mammogram documented in this encounter [facility] note* Diagnosis Encounter for gynecological examination (general) (routine) without abnormal findings- Primary Encounter for screening mammogram for breast cancer documented in this encounter [facility] note* Diagnosis Encounter for screening mammogram for malignant neoplasm of breast Other screening mammogram documented in this encounter [facility] note* Diagnosis Hyperlipemia Other and unspecified hyperlipidemia documented in this encounter [facility] Work Phone: Reason for referral (narrative)* Diagnostic Procedure Only (Routine) - Closed Specialty Diagnoses / Procedures Referred By Contac t Referred To Contact [facility] Diagnoses Abnormal mammogram Procedures KACIE DIAGNOSTIC LT DIAGNOSTIC MAMMOGRAPHY COMPUTER-AIDED DETCJ Alfred Poole MD [address] [place] [address] [facility] [address] [place] [address] [place] [address] Referral ID Status Reason Start Date Expiration Date V isits Requested Visits Authorized [id number] Closed Auto-Generate d Referral 06/22/2021 07/22/2022 1 1 [facility] for referral (narrative)* Diagnostic Procedure Only (Routine) - Pending Review Specialty Diagnoses / Procedures Referred By Contac t Referred To Contact [facility] Diagnoses Encounter for screening mammogram for malignant neoplasm of breast Procedures KACIE SCREENING W OTF SCREENING DIGITAL BREAST TOMOSYNTHESIS BI SCREENING MAMMOGRAPHY BI 2-VIEW BREAST INC Doug Hawkins MD [address] [place] [address] [facility] [address] [place] [address] Referral ID Status Reason Start Date Expiration Date Visits Requested Visits Authorized [id number] Pending Review Auto-Generat ed Referral 2 04/24/2023 1 1 T [facility] for referral (narrative)* Diagnostic Procedure Only (Routine) - Pending Review Specialty Diagnoses / Procedures Referred By Nayan schultz Referred To Contact [facility] Diagnoses Encounter for screening mammogram for malignant neoplasm of breast Dense breasts Procedures KACIE SCREENING W OTF SCREENING DIGITAL BREAST TOMOSYNTHESIS BI SCREENING MAMMOGRAPHY BI 2-VIEW BREAST INC Doug Hawkins MD [address] [place] [address] [facility] [address] [address] Referral ID Status Reason Start Date Expiration Date Visits Requested Visits Authorized [id number] Pending Review Auto-Generat ed Referral 2 05/23/2023 1 1 [facility] for referral (narrative)* Diagnostic Procedure Only (Routine) - Closed Specialty Diagnoses / Procedures Referred By Nayan t Referred To Contact [facility] Diagnoses Encounter for screening mammogram for malignant neoplasm of breast Procedures KACIE SCREENING W OTF SCREENING DIGITAL BREAST TOMOSYNTHESIS BI SCREENING MAMMOGRAPHY BI 2-VIEW BREAST INC Doug Hawkins MD [address] [place] [address] [facility] [address] [place] [address] Referral ID Status Reason Start Date Expiration Date V isits Requested Visits Authorized [id number] Closed Auto-Generate d Referral 03/26/2022 04/24/2023 1 1 [facility] for visit Narrative* Diagnostic Procedure Only (Routine) - Closed Specialty Diagnoses / Procedures Referred By Contac t Referred To Contact [facility] Diagnoses Abnormal mammogram Procedures KACIE DIAGNOSTIC LT DIAGNOSTIC MAMMOGRAPHY COMPUTER-AIDED DETCJ [facility] Alfred Dobson MD [address] [place] [address] [facility] [address] [place] [address] Referral ID Status Reason Start Date Expiration Date V isits Requested Visits Authorized [id number] Closed Auto-Generate d Referral 06/22/2021 07/22/2022 1 1 [facility] for visit Narrative* Diagnostic Procedure Only (Routine) - Closed Specialty Diagnoses / Procedures [facility] Diagnoses Encounter for screening mammogram for malignant neoplasm of breast Procedures KACIE SCREENING W OTF SCREENING DIGITAL BREAST TOMOSYNTHESIS BI SCREENING MAMMOGRAPHY BI 2-VIEW BREAST INC Doug Hawkins MD [address] [place] [address] [facility] [address] [place] [address] Referral ID Status Reason Start Date Expiration Date V isits Requested Visits Authorized [id number] Closed Auto-Generate d Referral 03/26/2022 04/24/2023 1 1 [facility] for visit Narrative* Diagnostic Procedure Only (Routine) - Closed Specialty Diagnoses / Procedures Referred By Contac t Referred To Contact [facility] Diagnoses Encounter for screening mammogram for malignant neoplasm of breast Procedures KACIE SCREENING W OTF SCREENING DIGITAL BREAST TOMOSYNTHESIS BI SCREENING MAMMOGRAPHY BI 2-VIEW BREAST INC Doug Hawkins MD [address] [place] [address] Phone: tel: fax: [facility] [address] [place] [address] Referral ID Status Reason Start Date Expiration Date V isits Requested Visits Authorized [id number] Closed Auto-Generate d Referral 07/29/2024 08/28/2025 1 1 [facility] for visit Narrative* Imaging (Routine) - Pending Review Specialty Diagnoses / Procedures Referred By Nayan t Referred To Contact Radiology Diagnoses Hyperlipemia Procedures CT cardiac scoring wo IV contrast Kei Morales MD [address] [place] [address] Phone: tel: fax: Referral ID Status Reason Start Date Expiration Date Visits Requested Visits Authorized [id number] Pending Review Perform Procedure 06/04/2024 06/04/2025 1 1 [facility] Work Phone: Summary Purpose Family History No Family History Records Found Relationship Condition Age at Onset Recorded Date/T [place] Not Specified Malignant neoplasm of skin Unknown Diabetes mellitus Unknown High blood cholesterol Unknown Alcoholism Unknown Arthritis Unknown Family history of ma lignant neoplasm of skin Unknown Advance Directives No Advanced Directives Records Found Advance Directive Response Recorded Date/ Time Living Will Yes April 18, 8:05am Power of Honey Producer Yes April 18, 2021 8:05am Additional Source Comments INFORMATION SOURCE (unrecogn ized section and content) DATE CREATED AUTHOR 05/07/2021 [facility] DATE CREATED AUTHOR AUTHOR'S ORGANIZ ATION 06/26/2024 [facility] DATE CREATED AUTHOR AUTHOR'S ORGANIZ ATION 10/05/2024 [facility] DATE CREATED AUTHOR AUTHOR'S ORGANIZ ATION 11/07/2024 [facility] Source Comments (unrecognize d section and content) In the event this informatio n is protected by the Federal Confidentiality of Alcohol and Drug Abuse Patient Records regulations: The Federal rules restrict any use of the information to criminally investigate or prosecute any alcohol or drug abuse patient.[facility] the event this information is protected by the Federal Confidentiality of Alcohol and Drug Abuse Patient Records regulations: The Federal rules restrict any use of the information to criminally investigate or prosecute any alcohol or drug abuse patient.[facility]In the event this information is protected by the Federal Confidentiality of Alcohol and Drug Abuse Patient Records regulations: The Federal rules restrict any use of the information to criminally investigate or prosecute any alcohol or drug abuse patient.[facility]In the event this information is protected by the Federal Confidentiality of Alcohol and Drug Abuse Patient Records regulations: The Federal rules restrict any use of the information to criminally investigate or prosecute any alcohol or drug abuse patient.[facility]In the event this information is protected by the Federal Confidentiality of Alcohol and Drug Abuse Patient Records regulations: The Federal rules restrict any use of the information to criminally investigate or prosecute any alcohol or drug abuse patient.[facility] HospitalIn the event this information is protected by the Federal Confidentiality of Alcohol and Drug Abuse Patient Records regulations: The Federal rules restrict any use of the information to criminally investigate or prosecute any alcohol or drug abuse patient.[facility] HospitalIn the event this information is protected by the Federal Confidentiality of Alcohol and Drug Abuse Patient Records regulations: The Federal rules restrict any use of the information to criminally investigate or prosecute any alcohol or drug abuse patient.[facility] HospitalIn the event this information is protected by the Federal Confidentiality of Alcohol and Drug Abuse Patient Records regulations: The Federal rules restrict any use of the information to criminally investigate or prosecute any alcohol or drug abuse patient.[facility] HospitalIn the event this information is protected by the Federal Confidentiality of Alcohol and Drug Abuse Patient Records regulations: The Federal rules restrict any use of the information to criminally investigate or prosecute any alcohol or drug abuse patient.[facility] Reason for Visit (unrecogniz ed section and content) Reason Comments Orders Reason Onset Date Comments Yearly Exam 04/23/2022 Reason Comments [facility] Teams (unrecognized sec tion and content) Team Status: Active Member Role Status Dates Dr. Willem Morales MD Family Provider Active Dr. Willem Morales MD Primary Care Provider Activ e Team Status: Inactive Member Role Status Dates Dr. Willem Morales MD Primary Care Provider, Atte nding Provider Active Education Program Specialist Relationship Specialty Start Date End Date Kei Morales MD PCP - General 05/03/21 Goals (unrecognized section and content) Goals may be documented in a n alternate section FOR RECORDS PERTAINING TO PATIENTS WHO ARE OR HAVE BEEN ENROLLED IN A CHEMICAL DEPENDENCY/SUBSTANCEABUSE PROGRAM, SOME INFORMATION MAY BE OMITTED. This clinical summary was aggregated from multiple sources. Caution should be exercised in using it in the provision of clinical care. This summary normalizes information from multiple sources, and as a consequence, information in this document may materially change the coding, format and clinical context of patient data. In addition, data may be omitted in some cases. CLINICAL DECISIONS SHOULD BE BASED ON THE PRIMARY CLINICAL RECORDS. [facility]. provides no warranty or guarantee of the accuracy or completeness of information in this document.
[2025-05-20 11:24] LABS: AST(SGOT) 23 U/L (<=31); Alanine Aminotransfer ALT/SGPT 15 U/L (<=34); Albumin, Serum 4.3 g/dL (3.5-5.0); Alkaline Phosphatase 65 U/L (35-104); Anion Gap 12 (5-15); BUN 19 mg/dL (4-19); BUN/Creat Ratio 17.8 RATIO (10-20); Calcium,Total 9.7 mg/dL (7.6-11.0); Carbon Dioxide 26.7 mmol/L (21.0-32.0); Chloride 105 mmol/L (98-108); Cholesterol 272 mg/dL (<=200); Globulin 2.7 g/dL (2.2-4.2); Glucose 94 mg/dL (70-99); Low Density Lipoprotein Calc. 185 mg/dL; Potassium 3.9 mmol/L (3.3-5.1); Triglycerides 87 mg/dL; Very Low Density Lipoprotein 17 mg/dL (5-40); cholesterol:hdl ratio screen 3.74
== END | disposition home or self-care (01) ==
PROVIDERS: PCP Family Medicine; Referring Provider Family Medicine; Visit Provider Family Medicine
DX: E78.00 Pure hypercholesterolemia, unspecified (principal); Z13.29 Encounter for screening for other suspected endocrine disorder
CPT/HCPCS: 36415; 80053; 80061; 84443

== ENCOUNTER → 2025-05-31 | Outpatient (CLI) | payer BC, SELFPAY ==
--- NOTE | 2025-05-31 11:02 | CT_ITS ---
PROCEDURE: CHEST WITHOUT CONTRAST 05/31/2025 REASON FOR EXAM: NODULE ON SCAN 10/2024 TECHNIQUE: Chest CT without contrast. Coronal and Sagittal reconstruction series were provided. One or more dose reduction techniques were used (e.g., Automated exposure control, adjustment of the mA and/or kV according to patient size, use of iterative reconstruction technique FINDINGS: The lungs are clear. No airspace consolidation, pulmonary nodule, or pleural effusion. The unenhanced heart and great vessels appear grossly unremarkable. No thoracic lymphadenopathy. No acute osseous abnormality. Mild thoracic spondylosis. The visualized unenhanced upper abdominal contents appear grossly unremarkable. CT/Chest without Contrast IMPRESSION: No acute cardiothoracic process. Reading Location: [id number]
== END | disposition home or self-care (01) ==
LOC: CT 10:57
PROVIDERS: PCP Family Medicine
DX: R91.1 Solitary pulmonary nodule (principal)
CPT/HCPCS: 71250